=== PATIENT | female | born 1995 | race Caucasian/White ===

== ENCOUNTER 2020-01-11 03:05 | Emergency (ER) | payer MEDICAID, SELFPAY ==
[2020-01-11] VITALS (7 sets, daily range): BP systolic 97–129; BP diastolic 61–81; PULSE 62–105; RESP 15–17; TEMP 36.8; O2SAT 97–100; BMI 30.2
--- NOTE | 2020-01-11 03:13 | USR_ITS ---
PROCEDURE INFORMATION: Exam: US Abdomen, Limited; Right Upper Quadrant Exam date and time: 01/11/2020 3:46 AM Age: 24 years old Clinical indication: Abdominal pain; Acute; ; Patient HX: Ruq pain; Additional info: Abdominal pain ruq elton TECHNIQUE: Imaging protocol: US abdomen. Real time ultrasound with image documentation. Limited exam focused on the right upper quadrant. COMPARISON: No relevant prior studies available. FINDINGS: Liver: Unremarkable measuring 12.02 cm in length. No masses. Gallbladder: A 1.3 cm shadowing stone is present in the gallbladder with the mild wall thickening measuring 0.37 cm. Common bile duct: Normal. No stones. No dilation. Pancreas: Visualized pancreas is unremarkable. Right kidney: Unremarkable measuring 9.2 x 4 x 4.7 cm. No mass. No hydronephrosis. US/US abdomen limited [id number] IMPRESSION: A gallstone is present with gallbladder wall thickening.
--- NOTE | 2020-01-11 03:44 | ED_ITS ---
Documented by User: Oliva Alatorre 01/11/20 05:37 HPI - Abdominal Pain General: Chief Complaint: Abdominal Pain Stated Complaint: ABDOMINAL PAIN Time Seen by Provider: 01/11/20 03:08 Source: patient and EMS Mode of arrival: EMS Limitations: no limitations History of Present Illness: HPI narrative: An is a nice 24-year-old female who comes in complaining of epigastric pain. She describes the pain as a dull aching pain. Is been present for about 2 weeks and she states comes on at night. She has associated nausea with this. She does take a nonsteroidal at home that helps but the pain recurs after the medicine has worn off. She has a lot of belching with this as well. She complains of constipation and no diarrhea. She denies any lower abdominal pain. Patient states the pain is usually gone during the day but then each night recurs. She came in tonight because she was frustrated that the pain was not resolving. She denies any feve rs or chills, no chest pain or shortness of breath. She denies any aggravating or alleviating factors other than the nonsteroidals. Patient denies having anything similar in the past. There is no report of vaginal bleeding, vaginal discharge or urinary symptoms. Associated Symptoms: Reports nausea; Denies chills, coffee ground emesis, constipation, GI cramping, diarrhea, dysuria, fever(s), heartburn, hematochezia, hematuria, hematemesis, melena, syncope and vomiting Review of Systems Const: Denies: fever(s), chills, body aches, fatigue, malaise or diaphoresis Eyes: Denies: change in vision, blurry vision, photophobia, eye discomfort, eye discharge, eye redness or yellow eyes ENMT: Denies: throat pain, odynophagia, hoarseness, swelling of lips/tongue, ear or mastoid pain, ear discharge, change in hearing or nasal discharge Card: Denies: chest pain, palpitations, irregular heart rhythm, edema, lightheadedness, syncope, pre-syncope, dyspnea on exertion or orthopnea Resp: Denies: dyspnea, productive cough, non-productive cough, wheezing, hemoptysis or chest congestion GI: Reports: abdominal pain and nausea; Denies: vomiting, hematemesis, coffee ground emesis, heartburn, diarrhea, constipation, GI cramping, hematochezia or melena : Denies: flank pain, dysuria, urinary frequency, urinary urgency or hematuria Musc: Denies: neck pain, back pain, extremity pain, extremity swelling, joint pain, joint swelling, joint redness, joint warmth or joint stiffness Skin/Breast: Denies: rash, pruritus, erythema, skin pain or skin tenderness Neuro: Denies: headache(s), numbness in extremities, weakness in extremities, sensory changes, lack of coordination, difficulty walking, dizziness, vertigo, confusion, Slurred speech present or seizure-like activity [place]/Lymph: Denies: easy bruising, easy bleeding, petechiae, purpura or e nlarged lymph nodes All/Imm: Denies: urticaria, throat swelling, tongue swelling, facial swelling or acute wheezing PFSH ED PFSH: Medical History No pertinent past medical history Surgical History History of section, classical Physical Exam Const: COMMON NORMALS: no acute distress, patient oriented x3, no limitations and alert GENERAL APPEARANCE: cooperative HENMT: COMMON NORMALS: normocephalic, atraumatic, external ears normal, EAC's normal and Normal external nose present HEAD & SCALP: normal to inspection, normocephalic and atraumatic FACE & SINUS: normal facial exam and face symmetric NOSE: Normal external nose present and Normal nares present EXTERNAL EAR: Yes external ears normal EXTERNAL AUDITORY CANAL: EAC's normal MOUTH: Normal oral and palatal mucosa present, lip normal and tongue normal Eye: COMMON NORMALS: Equal, round and reactive pupils present and conjunctivae normal GENERAL EYE: appearance normal, both eyes and all related structures ALIGNMENT: Yes alignment normal PERIORBITAL: periorbital findings normal EYELID: eyelids normal CONJUNCTIVA: Yes conjunctivae normal SCLERA: sclerae normal PUPIL: Yes Equal, round and reactive pupils present Neck/C-Spine: COMMON NORMALS: full ROM, no lymphadenopathy, supple, no meningeal signs and no JVD GENERAL: Yes normal visual inspection and Yes trachea midline Chest: COMMONS NORMALS: normal inspection of the chest and normal palpation of entire chest wall Resp: COMMON NORMALS: normal respiratory effort, No retractions, No use of accessory muscles and clear to auscultation bilaterally EFFORT & INSPECTION: Yes able to speak in complete sentences and Yes symmetric chest movement AUSCULTATION: clear to auscultation bilaterally, no crackles, no rales, no rhonchi and no wheezes Cardio: COMMON NORMALS: no JVD, regular rate, regular rhythm, S1 normal heart sound present and S2 normal heart sound present RATE: regular rate RHYTHM: regular rhythm HEART SOUNDS: S1 normal heart sound present, S2 normal heart sound present, no click, no gallops, no murmurs and no rubs GI: COMMON NORMALS: Soft to palpation and No hepatosplenomegaly present PALPATION: Yes Soft to palpation, Yes Tenderness to palpation present (GI) (Mild to the epigastric area), No Guarding due to palpation present (GI), No Rigid due to palpation, Yes No hepatosplenomegaly present, No Hernia present, No Palpable mass present and No Pulsatile mass present : COMMON NORMALS: Yes no CVA tenderness BLADDER/KIDNEY EXAM: Yes no CVA tenderness EXTERNAL FEMALE EXAM: No Hernia present SPECULUM EXAM - VAGINA: Yes other (Cervical os closed. No obvious vaginal discharge or bleeding. Mild right adnexal tenderness to palpation. Pelvic exam unremarkable.) Back/Pelvis: COMMON NORMALS: no CVA tenderness, thoracic and lumbar spine normal to inspection, no thoracic nor lumbar tenderness and thoraco-lumbar ROM normal Extremity: COMMON NORMALS: normal to inspection, full ROM, capillary refill normal, no joint enlargement, no clubbing, cyanosis or edema and no calf tenderness Neuro: COMMON NORMALS: patient oriented x3, CN's II-XII intact bilaterally, moves all extremities, no focal motor deficits and no sensory deficits noted SENSORIUM/ORIENTATION: Yes alert MENINGEAL SIGNS: Yes no meningeal signs SPEECH: speech normal Psych: COMMON NORMALS: mental status grossly normal, Normal thought process present, cooperative, normal affect, speech normal and activity/motor behavior normal SPEECH: Yes normal speech THOUGHT PROCESS: Normal thought process present Skin: COMMON NORMALS: no rashes or lesions noted, turgor normal, no jaundice, no petechiae and no mottling GENERAL SKIN EXAM: no rashes or lesions noted and turgor normal Course Vital Signs: Vital signs: Vital Signs Temperature 98.2 F 01/11/20 03:06 Pulse Rate 90 01/11/20 06:00 Respiratory Rate 16 01/11/20 06:00 Blood Pressure 97/61 01/11/20 06:00 Pulse Oximetry 98 01/11/20 06:00 MDM - Abdominal Pain Lab Data: Attestation: I reviewed the patient's lab results. Labs: Lab Results 01/11/20 01/11/20 01/11/20 Range/Units 03:46 03:46 03:56 WBC 9.7 (4.0-10.0) 10^3/ uL RBC 4.56 (4.1-5.3) 10^6/u L Hgb 13.3 (11.5-15.3) g/dL Hct 39.7 (37.0-47.0) % MCV 87.1 (81-99) fL MCH 29.2 (28.0-34.0) pg MCHC 33.5 (30.0-36.0) g/dL RDW 13.0 (12.1-15.1) % Plt Count 208 (130-400) 10^3/c mm MPV 10.8 H (7.4-10.4) fL Neut % (Auto) 73.9 % Lymph % (Auto) 20.3 % [place] % (Auto) 4.7 % Eos % (Auto) 0.4 % Baso % (Auto) 0.5 % Neut # (Auto) 7.18 (1.8-7.7) 10^3/u L Lymph # (Auto) 2.0 (0.8-4.8) 10^3/u L [place] # (Auto) 0.5 (0.2-0.9) 10^3/u L Eos # (Auto) 0.0 (0.0-0.8) 10^3/u L Baso # (Auto) 0.1 (0.0-0.1) 10^3/u L Nucleated RBC % (a uto) 0 % Nucleated RBCs # 0.0 /100WBC Sodium (136-145) mmol/L Potassium (3.5-5.1) mmol/L Chloride (98-107) mmol/L Carbon Dioxide (22-29) mmol/L Anion Gap (5-19) BUN (6-20) mg/dL Creatinine (0.5-0.9) mg/dL GFR Calculation (90-130) mL/min Glucose (65-115) mg/dL Calculated Osmolal ity (285-295) mOsm/k g Calcium (8.5-10.5) mg/dL Magnesium (1.7-2.3) mg/dL Total Bilirubin (0.15-1.2) mg/dL AST (0-32) U/L ALT (0-33) U/L Alkaline Phosphata se (35-105) IU/L Total Protein (6.6-8.7) g/dL Albumin (3.5-5.2) g/dL Globulin (1.3-4.6) g/dL Lipase (13-60) U/L HCG, Qual Positive H (Negative) Ser , Fiona i-Qnt mIU/mL Urine Color Straw (Yellow) Urine Appearance Sl hazy (CLEAR) Urine pH 5 (5-7) Ur Specific Gravit y 1.005 (1.005-1.030) Urine Protein Neg (Negative) Urine Glucose (UA) Norm (Normal) Urine Ketones Negative (Negative) Urine Blood Neg (Negative) Urine Nitrate Positive H (Negative) Urine Bilirubin Neg (Negative) Urine Urobilinogen Norm (Negative) mg/dL Ur Leukocyte Naz ase Negative (Negative) Urine RBC 0-4 H (0-2) /hpf Urine WBC 0-4 H (0-5) /hpf Ur Squamous Epith Cells 25-40 H (0-5) /hpf Amorphous Sediment 2+ /hpf Urine Bacteria 2+ H (NONE) /hpf Urine Mucus 1+ /hpf Blood Type Rho(D) Type 01/11/20 01/11/20 01/11/20 Range/Units 03:56 03:56 07:10 WBC (4.0-10.0) 10^3/ uL RBC (4.1-5.3) 10^6/u L Hgb (11.5-15.3) g/dL Hct (37.0-47.0) % MCV (81-99) fL MCH (28.0-34.0) pg MCHC (30.0-36.0) g/dL RDW (12.1-15.1) % Plt Count (130-400) 10^3/c mm MPV (7.4-10.4) fL Neut % (Auto) % Lymph % (Auto) % [place] % (Auto) % Eos % (Auto) % Baso % (Auto) % Neut # (Auto) (1.8-7.7) 10^3/u L Lymph # (Auto) (0.8-4.8) 10^3/u L [place] # (Auto) (0.2-0.9) 10^3/u L Eos # (Auto) (0.0-0.8) 10^3/u L Baso # (Auto) (0.0-0.1) 10^3/u L Nucleated RBC % (a uto) % Nucleated RBCs # /100WBC Sodium 139 (136-145) mmol/L Potassium 3.7 (3.5-5.1) mmol/L Chloride 109 H (98-107) mmol/L Carbon Dioxide 20 L (22-29) mmol/L Anion Gap 13.7 (5-19) BUN 9 (6-20) mg/dL Creatinine 0.7 (0.5-0.9) mg/dL GFR Calculation 102.8 (90-130) mL/min Glucose 96 (65-115) mg/dL Calculated Osmolal ity 287 (285-295) mOsm/k g Calcium 9.2 (8.5-10.5) mg/dL Magnesium 2.0 (1.7-2.3) mg/dL Total Bilirubin 0.2 (0.15-1.2) mg/dL AST 12 (0-32) U/L ALT 9 (0-33) U/L Alkaline Phosphata se 84 (35-105) IU/L Total Protein 6.5 L (6.6-8.7) g/dL Albumin 4.3 (3.5-5.2) g/dL Globulin 2.2 (1.3-4.6) g/dL Lipase 19 (13-60) U/L HCG, Qual (Negative) Ser , Fiona i-Qnt 18.94 mIU/mL Urine Color (Yellow) Urine Appearance (CLEAR) Urine pH (5-7) Ur Specific Gravit y (1.005-1.030) Urine Protein (Negative) Urine Glucose (UA) (Normal) Urine Ketones (Negative) Urine Blood (Negative) Urine Nitrate (Negative) Urine Bilirubin (Negative) Urine Urobilinogen (Negative) mg/dL Ur Leukocyte Naz ase (Negative) Urine RBC (0-2) /hpf Urine WBC (0-5) /hpf Ur Squamous Epith Cells (0-5) /hpf Amorphous Sediment /hpf Urine Bacteria (NONE) /hpf Urine Mucus /hpf Blood Type O Positive Rho(D) Type Positive Imaging Data ^: US: Radiologist's impression: [address] [address] Ultrasound Report Signed Patient: Etta Mayorga #: [id number] : 1995Acct#:[id number] Age/Sex: 24 / FADM Date: 01/11/20 Loc: ERRoom/Bed: Attending Dr: Ordering Provider/Ordering MD: Oliva Alatorre DO Date of Service: 01/11/20 Procedure(s): US abdomen limited [id number] Accession Number(s): [id number] Report Number: [id number] PROCEDURE INFORMATION: Exam: US Abdomen, Limited; Right Upper Quadrant Exam date and time: 01/11/2020 3:46 AM Age: 24 years old Clinical indication: Abdominal pain; Acute; ; Patient HX: Ruq pain; Additional info: Abdominal pain ruq elton TECHNIQUE: Imaging protocol: US abdomen. Real time ultrasound with image documentation. Limited exam focused on the right upper quadrant. COMPARISON: No relevant prior studies available. FINDINGS: Liver: Unremarkable measuring 12.02 cm in length. No masses. Gallbladder: A 1.3 cm shadowing stone is present in the gallbladder with the mild wall thickening measuring 0.37 cm. Common bile duct: Normal. No stones. No dilation. Pancreas: Visualized pancreas is unremarkable. Right kidney: Unremarkable measuring 9.2 x 4 x 4.7 cm. No mass. No hydronephrosis. US/US abdomen limited [id number] IMPRESSION: A gallstone is present with gallbladder wall thickening. Dictated By:Shakeel Velasquez Signed By:Amado Velasquez Date/Time:01/11/20426 DD/ 5 Discharge Plan Discharge Patient Disposition: Home Clinical Impression: Abdominal pain, Ectopic Condition: Stable Prescriptions: [place] 5-325 mg tablet 1 tab PO Q6H PRN (Reason: pain) Qty: 14 RF: 0 ondansetron 4 mg tablet,disintegrating 4 mg PO Q6H PRN (Reason: nausea and vomiting) Qty: 14 RF: 0 clindamycin HCl 300 mg capsule 300 mg PO Q8H 7 Days Qty: 21 RF: 0 Discharge Orders: Discharge Order (Routine); Ordered 01/11/20 Ordered By: Renny Pfeiffer Referrals: Breezy Rocha MD [Physician] - 1-3 days Hadley Medina MD [Physician] - 1-3 days Discharge Diet: Advance as tolerated Discharge Activity: Resume usual activity Patient Instructions: Cholecystitis (ED), Abdominal Pain (ED) Coding Level of Care Code ED Hand Etcher Helper for Chg Fwd Exam Comprehensive Documented by User: Renny Pfeiffer MD 01/11/20 08:16 HPI - Abdominal Pain General: Chief Complaint: Abdominal Pain Stated Complaint: ABDOMINAL PAIN Time Seen by Provider: 01/11/20 03:08 PFSH ED PFSH: Medical History No pertinent past medical history Surgical History History of section, classical Course Vital Signs: Vital signs: Vital Signs Temperature 98.2 F 01/11/20 03:06 Pulse Rate 90 01/11/20 06:00 Respiratory Rate 16 01/11/20 06:00 Blood Pressure 97/61 01/11/20 06:00 Pulse Oximetry 98 01/11/20 06:00 MDM - Abdominal Pain MDM Narrative: Medical decision making narrative: Patient presents here with abdominal pain. Ultrasound did show gallstones with very minimal wall thickening. Spoke to Dr. Medina who wants to follow patient outpatient. Will place her on pain meds along with clindamycin. Her OB ultrasound is concerning for possible ectopic. I spoke to Dr. Rocha about this. Her vital signs here are stable and her pain is controlled. Her serum quantitative is only 18. He states he wants to follow her quantitative and repeat ultrasound outpatient. He did not want to admit her or start methotrexate at this time. Patient is to follow-up with both providers in 2 to 3 days. She is to return to the ER if worsening. Lab Data: Labs: Lab Results 01/11/20 01/11/20 01/11/20 Range/Units 03:46 03:46 03:56 WBC 9.7 (4.0-10.0) 10^3/ uL RBC 4.56 (4.1-5.3) 10^6/u L Hgb 13.3 (11.5-15.3) g/dL Hct 39.7 (37.0-47.0) % MCV 87.1 (81-99) fL MCH 29.2 (28.0-34.0) pg MCHC 33.5 (30.0-36.0) g/dL RDW 13.0 (12.1-15.1) % Plt Count 208 (130-400) 10^3/c mm MPV 10.8 H (7.4-10.4) fL Neut % (Auto) 73.9 % Lymph % (Auto) 20.3 % [place] % (Auto) 4.7 % Eos % (Auto) 0.4 % Baso % (Auto) 0.5 % Neut # (Auto) 7.18 (1.8-7.7) 10^3/u L Lymph # (Auto) 2.0 (0.8-4.8) 10^3/u L [place] # (Auto) 0.5 (0.2-0.9) 10^3/u L Eos # (Auto) 0.0 (0.0-0.8) 10^3/u L Baso # (Auto) 0.1 (0.0-0.1) 10^3/u L Nucleated RBC % (a uto) 0 % Nucleated RBCs # 0.0 /100WBC Sodium (136-145) mmol/L Potassium (3.5-5.1) mmol/L Chloride (98-107) mmol/L Carbon Dioxide (22-29) mmol/L Anion Gap (5-19) BUN (6-20) mg/dL Creatinine (0.5-0.9) mg/dL GFR Calculation (90-130) mL/min Glucose (65-115) mg/dL Calculated Osmolal ity (285-295) mOsm/k g Calcium (8.5-10.5) mg/dL Magnesium (1.7-2.3) mg/dL Total Bilirubin (0.15-1.2) mg/dL AST (0-32) U/L ALT (0-33) U/L Alkaline Phosphata se (35-105) IU/L Total Protein (6.6-8.7) g/dL Albumin (3.5-5.2) g/dL Globulin (1.3-4.6) g/dL Lipase (13-60) U/L HCG, Qual Positive H (Negative) Ser , Fiona i-Qnt mIU/mL Urine Color Straw (Yellow) Urine Appearance Sl hazy (CLEAR) Urine pH 5 (5-7) Ur Specific Gravit y 1.005 (1.005-1.030) Urine Protein Neg (Negative) Urine Glucose (UA) Norm (Normal) Urine Ketones Negative (Negative) Urine Blood Neg (Negative) Urine Nitrate Positive H (Negative) Urine Bilirubin Neg (Negative) Urine Urobilinogen Norm (Negative) mg/dL Ur Leukocyte Naz ase Negative (Negative) Urine RBC 0-4 H (0-2) /hpf Urine WBC 0-4 H (0-5) /hpf Ur Squamous Epith Cells 25-40 H (0-5) /hpf Amorphous Sediment 2+ /hpf Urine Bacteria 2+ H (NONE) /hpf Urine Mucus 1+ /hpf Blood Type Rho(D) Type 01/11/20 01/11/20 01/11/20 Range/Units 03:56 03:56 07:10 WBC (4.0-10.0) 10^3/ uL RBC (4.1-5.3) 10^6/u L Hgb (11.5-15.3) g/dL Hct (37.0-47.0) % MCV (81-99) fL MCH (28.0-34.0) pg MCHC (30.0-36.0) g/dL RDW (12.1-15.1) % Plt Count (130-400) 10^3/c mm MPV (7.4-10.4) fL Neut % (Auto) % Lymph % (Auto) % [place] % (Auto) % Eos % (Auto) % Baso % (Auto) % Neut # (Auto) (1.8-7.7) 10^3/u L Lymph # (Auto) (0.8-4.8) 10^3/u L [place] # (Auto) (0.2-0.9) 10^3/u L Eos # (Auto) (0.0-0.8) 10^3/u L Baso # (Auto) (0.0-0.1) 10^3/u L Nucleated RBC % (a uto) % Nucleated RBCs # /100WBC Sodium 139 (136-145) mmol/L Potassium 3.7 (3.5-5.1) mmol/L Chloride 109 H (98-107) mmol/L Carbon Dioxide 20 L (22-29) mmol/L Anion Gap 13.7 (5-19) BUN 9 (6-20) mg/dL Creatinine 0.7 (0.5-0.9) mg/dL GFR Calculation 102.8 (90-130) mL/min Glucose 96 (65-115) mg/dL Calculated Osmolal ity 287 (285-295) mOsm/k g Calcium 9.2 (8.5-10.5) mg/dL Magnesium 2.0 (1.7-2.3) mg/dL Total Bilirubin 0.2 (0.15-1.2) mg/dL AST 12 (0-32) U/L ALT 9 (0-33) U/L Alkaline Phosphata se 84 (35-105) IU/L Total Protein 6.5 L (6.6-8.7) g/dL Albumin 4.3 (3.5-5.2) g/dL Globulin 2.2 (1.3-4.6) g/dL Lipase 19 (13-60) U/L HCG, Qual (Negative) Ser , Fiona i-Qnt 18.94 mIU/mL Urine Color (Yellow) Urine Appearance (CLEAR) Urine pH (5-7) Ur Specific Gravit y (1.005-1.030) Urine Protein (Negative) Urine Glucose (UA) (Normal) Urine Ketones (Negative) Urine Blood (Negative) Urine Nitrate (Negative) Urine Bilirubin (Negative) Urine Urobilinogen (Negative) mg/dL Ur Leukocyte Naz ase (Negative) Urine RBC (0-2) /hpf Urine WBC (0-5) /hpf Ur Squamous Epith Cells (0-5) /hpf Amorphous Sediment /hpf Urine Bacteria (NONE) /hpf Urine Mucus /hpf Blood Type O Positive Rho(D) Type Positive Imaging Data ^: US OB: Radiologist's impression: [address] [place] [address] Ultrasound Report Signed Patient: An Mayorga Unit #: [id number] : 1995 Age/Sex: 24 / F ADM Date: 01/11/20 Loc: ER Room/Bed: Attending Dr: Ordering Provider/Ordering MD: Oliva Alatorre DO Date of Service: 01/11/20 Procedure(s): US OB <=14 wk fetus w transvag Accession Number(s): [id number] Report Number: [id number] PROCEDURE INFORMATION: Exam: US First Trimester, Transabdominal and US , Transvaginal Exam date and time: 01/11/2020 4:30 AM Age: 24 years old Clinical indication: Other: PT here for ruq pain and she has gallstones with thickened wall; Gestational age or lmp: Unsure dates; ; Prior surgery; Surgery date: 6+ months; Surgery type: 3 c sections; Patient HX: PT did not know she was pg until test done in er. TECHNIQUE: Imaging protocol: Real-time transabdominal obstetrical ultrasound of the maternal pelvis and a first trimester , less than 14 weeks 0 days, with image documentation. Transvaginal imaging was used for better evaluation of the fetus, adnexa, and/or cervix. COMPARISON: US abdomen limited [id number] 01/11/2020 3:57 AM FINDINGS: No intrauterine gestation is identified. MATERNAL: Uterus: Is unremarkable measuring 10.0 x 3.4 x 5 cm with a volume of 92 mL. Cervix: Unremarkable. Right adnexa: The right ovary is seen measuring 3.8 x 2.6 x 2.6 cm with a volume of 13.2 cc. Appearance of a mass is seen next to the right ovary with flow seen in the Doppler examination like a ring of fire . Left adnexa: The left ovary is not seen. Intraperitoneal space: Small amount of free fluid is seen in the cul-de-sac. US/US OB <=14 wk fetus w transvag IMPRESSION: No intrauterine gestation is seen. A mass is seen next to the right ovary with increased flow on Doppler examination like ring of fire. Small amount of free fluid is seen in the cul-de-sac. An ectopic is not excluded. Correlation with beta HCG levels and follow-up is suggested. Discharge Plan Discharge Patient Disposition: Home Clinical Impression: Abdominal pain, Ectopic Condition: Stable Prescriptions: [place] 5-325 mg tablet 1 tab PO Q6H PRN (Reason: pain) Qty: 14 RF: 0 ondansetron 4 mg tablet,disintegrating 4 mg PO Q6H PRN (Reason: nausea and vomiting) Qty: 14 RF: 0 clindamycin HCl 300 mg capsule 300 mg PO Q8H 7 Days Qty: 21 RF: 0 Discharge Orders: Discharge Order (Routine); Ordered 01/11/20 Ordered By: Renny Pfeiffer Referrals: Breezy Rocha MD [Physician] - 1-3 days Hadley Medina MD [Physician] - 1-3 days Discharge Diet: Advance as tolerated Discharge Activity: Resume usual activity Patient Instructions: Cholecystitis (ED), Abdominal Pain (ED) Coding Level of Care Code ED Hand Etcher Helper for Chg Fwd Exam Comprehensive
[2020-01-11] MEDS: ondansetron 2 mg/ML SDV 2 mL 4 MG IVP (03:45)
[2020-01-11] MEDS: morphine 4 mg/mL SDV 1 mL IVP (03:45)
[2020-01-11] MEDS: sodium chloride 0.9% 1,000 ML 100 ML IV (03:45)
[2020-01-11 04:08] LABS: Basophils # 0.1 10^3/uL (0.0-0.1); Basophils % 0.5 %; Eosinophils % 0.4 %; Hematocrit 39.7 % (37.0-47.0); Hemoglobin 13.3 g/dL (11.5-15.3); Lymphocytes % 20.3 %; Mean Corpuscular HGB Conc 33.5 g/dL (30.0-36.0); Mean Corpuscular Hemoglobin 29.2 pg (28.0-34.0); Mean Corpuscular Volume 87.1 fL (81-99); Mean Platelet Volume 10.8 fL (7.4-10.4); Monocytes # 0.5 10^3/uL (0.2-0.9); Monocytes % 4.7 %; Neutrophils # 7.18 10^3/uL (1.8-7.7); Neutrophils % 73.9 %; Nucleated Red Blood Cells % 0 %; Platelet Count 208 10^3/cmm (130-400); Red Blood Count 4.56 10^6/uL (4.1-5.3); White Blood Count 9.7 10^3/uL (4.0-10.0)
[2020-01-11 04:14] LABS: Add Urine Microscopic? YES; Bilirubin Urine Neg (Negative); Blood Urine Neg (Negative); Glucose Urine UA Norm (Normal); Ketones Urine Negative (Negative); Leukocyte Esterase Urine Negative (Negative); Nitrate Urine Positive (Negative); Protein Urine Neg (Negative); Specific Gravity, Urine 1.005 (1.005-1.030); Urine Appearance SL Hazy (CLEAR); Urine Color Straw (Yellow); Urobilinogen Urine Norm (Negative); pH Urine 5 (5-7)
[2020-01-11 04:16] LABS: HCG, Serum Qual Positive (Negative)
[2020-01-11 04:19] LABS: Add Urine Culture? No; Amorphous Sediment Urine 2+ /hpf; Bacteria Urine 2+ /hpf; Mucus Urine 1+ /hpf; RBC Urine 0-4 /hpf (0-2); Squamous Epithelial Cell Urine 25-40 /hpf (0-5); WBC Urine 0-4 /hpf (0-5)
--- NOTE | 2020-01-11 04:20 | USR_ITS ---
PROCEDURE INFORMATION: Exam: US First Trimester, Transabdominal and US , Transvaginal Exam date and time: 01/11/2020 4:30 AM Age: 24 years old Clinical indication: Other: PT here for ruq pain and she has gallstones with thickened wall; Gestational age or lmp: Unsure dates; ; Prior surgery; Surgery date: 6+ months; Surgery type: 3 c sections; Patient HX: PT did not know she was pg until test done in er. TECHNIQUE: Imaging protocol: Real-time transabdominal obstetrical ultrasound of the maternal pelvis and a first trimester , less than 14 weeks 0 days, with image documentation. Transvaginal imaging was used for better evaluation of the fetus, adnexa, and/or cervix. COMPARISON: US abdomen limited [id number] 01/11/2020 3:57 AM FINDINGS: No intrauterine gestation is identified. MATERNAL: Uterus: Is unremarkable measuring 10.0 x 3.4 x 5 cm with a volume of 92 mL. Cervix: Unremarkable. Right adnexa: The right ovary is seen measuring 3.8 x 2.6 x 2.6 cm with a volume of 13.2 cc. Appearance of a mass is seen next to the right ovary with flow seen in the Doppler examination like a ring of fire . Left adnexa: The left ovary is not seen. Intraperitoneal space: Small amount of free fluid is seen in the cul-de-sac. US/US OB <=14 wk fetus w transvag IMPRESSION: No intrauterine gestation is seen. A mass is seen next to the right ovary with increased flow on Doppler examination like ring of fire. Small amount of free fluid is seen in the cul-de-sac. An ectopic is not excluded. Correlation with beta HCG levels and follow-up is suggested.
[2020-01-11] MEDS: piperacillin-tazobactam 3.375 GM in sodium chloride 0.9% (plus) 50 ML IV (04:29)
[2020-01-11 04:32] LABS: Alanine Aminotransferase 9 U/L (0-33); Albumin Level 4.3 g/dL (3.5-5.2); Alkaline Phosphatase 84 IU/L (35-105); Anion Gap 13.7 (5-19); Aspartate Amino Transferase 12 U/L (0-32); Blood Urea Nitrogen 9 mg/dL (6-20); Calcium 9.2 mg/dL (8.5-10.5); Carbon Dioxide 20 mmol/L (22-29); Chloride 109 mmol/L (98-107); Globulin 2.2 g/dL (1.3-4.6); Glomerular Filtration Rate 102.8 mL/min (90-130); Glucose 96 mg/dL (65-115); Lipase 19 U/L (13-60); Osmolality Calculated 287 mOsm/kg (285-295); Potassium 3.7 mmol/L (3.5-5.1); Sodium 139 mmol/L (136-145); Total Bilirubin 0.2 mg/dL (0.15-1.2); Total Protein 6.5 g/dL (6.6-8.7)
[2020-01-11 04:34] LABS: HCG Quantitative 18.94 mIU/mL
--- NOTE | 2020-01-12 11:51 | DCPLANNER ---
fermentation manager had message to schedule a follow up appointment for patient with general surgery. fermentation manager luba Jones at [facility], gave patients information. Patients information will be printed and reviewed. Clinic will call patient with appointment information.
--- NOTE | 2020-01-12 12:34 | DCPLANNER ---
manager skilled had message to schedule a follow up appointment for patient with [facility]. manager skilled called [facility], spoke with Elías, gave clinic patients information. manager skilled was told that patients information would be printed and reviewed. Clinic will call patient with appointment information.
--- NOTE | 2020-01-15 14:27 | DCPLANNER ---
Patient had a follow up appointment scheduled for 01.13.20 with [facility] - patient did attend appointment.
--- NOTE | 2020-01-15 14:40 | DCPLANNER ---
Patient has a follow up appointment scheduled for Thursday, January 16, 2020 at 1:[address] Medina. Clinic will call patient with appointment information.
--- NOTE | 2020-02-04 13:17 | DCPLANNER ---
Patient had a follow up appointment scheduled for 01.16.20 with [facility] general surgery - patient did attend appointment.
== END 2020-01-11 08:17 | disposition home or self-care (01) ==
PROVIDERS: Emergency Medicine; Emergency Provider Emergency Medicine
DX: O00.90 Unspecified ectopic pregnancy without intrauterine pregnancy (principal); O99.611 Diseases of the digestive system complicating pregnancy, first trimester; K80.20 Calculus of gallbladder without cholecystitis without obstruction; Z3A.00 Weeks of gestation of pregnancy not specified
CPT/HCPCS: 12345; 36415; 76700; 76705; 76801; 76817; 80053; 81001; 83690; 83735; 84702; 84703; 85025; 86900; 87210; 87491; 87591; 96361; 96365; 96375; 99283; 99284; J2270; J2405; J2543; J7030

== ENCOUNTER → 2020-01-13 16:43 | Outpatient (BNVA) | payer MEDICAID, SELFPAY | PROVIDERS: Visit Provider Obstetrics & Gynecology | DX: O36.80X0 Pregnancy with inconclusive fetal viability, not applicable or unspecified (principal) | CPT/HCPCS: 84702 ==

== ENCOUNTER → 2020-01-15 13:05 | Outpatient (BNVA) | payer MEDICAID, SELFPAY | PROVIDERS: Visit Provider Obstetrics & Gynecology | DX: O00.90 Unspecified ectopic pregnancy without intrauterine pregnancy (principal) | CPT/HCPCS: 84702 ==

== ENCOUNTER → 2020-01-21 13:31 | Outpatient (BNVA) | payer MEDICAID, SELFPAY | PROVIDERS: Visit Provider Obstetrics & Gynecology | DX: O20.0 Threatened abortion (principal) | CPT/HCPCS: 84702 ==

== ENCOUNTER 2020-01-22 01:24 | Emergency (ER) | payer MEDICAID, SELFPAY ==
[2020-01-22] VITALS (9 sets, daily range): BP systolic 91–120; BP diastolic 51–82; PULSE 74–90; RESP 16–18; TEMP 36.8; O2SAT 97–99; BMI 30.2
--- NOTE | 2020-01-22 01:41 | US_ITS ---
WS: [id number] RIGHT UPPER QUADRANT ULTRASOUND HISTORY: Pain COMPARISON: 01/11/2020 Liver: 12.2 cm in length. Normal size liver. No bile duct dilatation or mass. Gallbladder: Gallbladder is contracted and there is a large stone present in the lumen measuring up t o 1.7 cm. Gallbladder wall is top normal size at 2.7 mm. CBD: 0.3 cm Pancreas: Normal size and echogenicity. Right kidney: 9.3 cm in length. Normal size and echogenicity. No hydronephrosis or mass. Aorta and IVC: Unremarkable abdominal aorta and IVC. No ascites. US/US gall bladder [id number] IMPRESSION: 1. Cholelithiasis in a mildly contracted gallbladder. No pericholecystic fluid . 2. Normal common bile duct.
--- NOTE | 2020-01-22 01:41 | US_ITS ---
WS: [id number] TRANSVAGINAL PELVIC ULTRASOUND HISTORY: Pain COMPARISON: None available. Uterus: Uterus is midline and normal size. No fibroid or mass. Endometrium: 0.5 cm. Normal size with very minimal amount of fluid along the endometrial canal. No fe paul pole or cardiac activity or gestational sac. Right ovary: 2.3 cm x 2.5 cm x 2.5 cm. Normal size and vascularity. Left ovary: 2.1 cm x 1.9 cm x 2.3 cm. Normal size and vascularity. No free fluid. US/US transvaginal [id number] IMPRESSION: Negative transvaginal pelvic ultrasound. No intrauterine gestation is identifie d. If there is a positive beta hCG ectopic cannot be excluded.
--- NOTE | 2020-01-22 01:42 | W.ED.ABDPA2 ---
HPI - Abdominal Pain General: Chief Complaint: Abdominal Pain Stated Complaint: ABD PAIN Time Seen by Provider: 01/22/20 01:26 Source: patient and EMS Mode of arrival: EMS Limitations: no limitations History of Present Illness: HPI narrative: An is a very nice 24-year-old female who comes in complaining of right upper quadrant abdominal pain. Patient has known gallbladder disease but is being cleared first by OB as she is having complications. Patient states that she saw her AGENCY SERVICE REPRESENTATIVE on 1112 and was told that she was likely having a miscarriage. Patient had vaginal bleeding for about 5 days but this is stopped. She denies any lower abdominal pain. Denies any vaginal discharge or bleeding. She has no burning or pain when she urinates or urinary frequency/urgency. Patient states her pain tonight is from her gallbladder as she has eaten something that has flared up her pain but otherwise she denies any chest pain or shortness of breath. She denies any other complaints. Associated Symptoms: Reports nausea; Denies chills, coffee ground emesis, constipation, GI cramping, diarrhea, dysuria, fever(s), heartburn, hematochezia, hematuria, hematemesis, melena, syncope and vomiting Review of Systems Const: Denies: fever(s), chills, body aches, fatigue, malaise or diaphoresis Eyes: Denies: change in vision, blurry vision, photophobia, eye discomfort, eye discharge, eye redness or yellow eyes ENMT: Denies: throat pain, odynophagia, hoarseness, swelling of lips/tongue, ear or mastoid pain, ear discharge, change in hearing or nasal discharge Card: Denies: chest pain, palpitations, irregular heart rhythm, edema, lightheadedness, syncope, pre-syncope, dyspnea on exertion or orthopnea Resp: Denies: dyspnea, productive cough, non-productive cough, wheezing, hemoptysis or chest congestion GI: Reports: abdominal pain and nausea; Denies: vomiting, hematemesis, coffee ground emesis, heartburn, diarrhea, constipation, GI cramping, hematochezia or melena : Denies: flank pain, dysuria, urinary frequency, urinary urgency or hematuria Musc: Denies: neck pain, back pain, extremity pain, extremity swelling, joint pain, joint swelling, joint redness, joint warmth or joint stiffness Skin/Breast: Denies: rash, pruritus, erythema, skin pain or skin tenderness Neuro: Denies: headache(s), numbness in extremities, weakness in extremities, sensory changes, lack of coordination, difficulty walking, dizziness, vertigo, confusion, Slurred speech present or seizure-like activity [place]inton/Lymph: Denies: easy bruising, easy bleeding, petechiae, purpura or enlarged lymph nodes All/Imm: Denies: urticaria, throat swelling, tongue swelling, facial swelling or acute wheezing PFSH ED PFSH: Medical History (Updated 01/22/20 @ 05:29 by Oliva Alatorre) No pertinent past medical history Surgical History History of section, classical Family History Mother Diabetes Hypertension Stroke Family/Other Stroke maternal Heart disease maternal uncle Breast cancer maternal aunt in her 30's Denies family history of Colon cancer Ovarian cancer Clotting disorder Hyperlipidemia Anesthesia complication Bleeding disorder Uterine cancer Thyroid condition Social History Smoking and tobacco status: current every day smoker cigarettes Packs smoked per day: 1 Alcohol intake: never Marital status: Single Course Vital Signs: Vital signs: Vital Signs Temperature 98.3 F 01/22/20 01:37 Pulse Rate 90 01/22/20 01:37 Respiratory Rate 18 01/22/20 05:09 Blood Pressure 99/65 01/22/20 01:37 Pulse Oximetry 98 01/22/20 01:37 MDM - Abdominal Pain MDM Narrative: Medical decision making narrative: 05Yue Nolan is a very nice 24-year-old female who comes in complaining of recurrent right upper quadrant abdominal pain. Patient is being followed by Dr. Rocha who believes the patient is likely had a miscarriage. Her hormone is now within the non range and lower than it was earlier in the day. Patient had 5 days of vaginal bleeding and discharge that subsided 3 days ago. She refuses a pelvic exam today. Is likely the patient had a miscarriage as her pelvic ultrasound is completely normal tonight without any sign of ectopic, intrauterine or any acute abnormality. Patient described almost all of her pain is right upper quadrant in location. Her ultrasound tonight shows gallstones but no signs of cholecystitis. Patient does not have any nausea or vomiting or fever. Her labs are unremarkable. Patient has a planned cholecystectomy and she would like to continue with that plan. She declines any further evaluation and care here. Her pain is gone and she would like to be discharged. She will follow-up with Dr. Medina as scheduled as well as Dr. Rocha. She agrees to return here if her symptoms change or worsen. Differential Diagnosis: Differential diagnosis abdominal pain: Likely abdominal pain, acute appendicitis, constipation, gastroenteritis, pancreatitis and small bowel obstruction Medical Records: Attestation: I reviewed the patient's medical records. Lab Data: Attestation: I reviewed the patient's lab results. Labs: Lab Results 01/22/20 01/22/20 01/22/20 Range/Units 02:24 02:24 02:24 WBC 11.3 H (4.0-10.0) 10^3/ uL RBC 4.72 (4.1-5.3) 10^6/u L Hgb 13.6 (11.5-15.3) g/dL Hct 42.1 (37.0-47.0) % MCV 89.2 (81-99) fL MCH 28.8 (28.0-34.0) pg MCHC 32.3 (30.0-36.0) g/dL RDW 12.6 (12.1-15.1) % Plt Count 244 (130-400) 10^3/c mm MPV 10.9 H (7.4-10.4) fL Neut % (Auto) 79.6 % Lymph % (Auto) 14.5 % Centre % (Auto) 4.8 % Eos % (Auto) 0.5 % Baso % (Auto) 0.4 % Neut # (Auto) 8.97 H (1.8-7.7) 10^3/u L Lymph # (Auto) 1.6 (0.8-4.8) 10^3/u L Centre # (Auto) 0.5 (0.2-0.9) 10^3/u L Eos # (Auto) 0.1 (0.0-0.8) 10^3/u L Baso # (Auto) 0.1 (0.0-0.1) 10^3/u L Nucleated RBC % (a uto) 0 % Nucleated RBCs # 0.0 /100WBC Sodium 138 (136-145) mmol/L Potassium 3.8 (3.5-5.1) mmol/L Chloride 104 (98-107) mmol/L Carbon Dioxide 23 (22-29) mmol/L Anion Gap 14.8 (5-19) BUN 16 (6-20) mg/dL Creatinine 0.8 (0.5-0.9) mg/dL GFR Calculation 88.1 L (90-130) mL/min Glucose 101 (65-115) mg/dL Calculated Osmolal ity 287 (285-295) mOsm/k g Calcium 9.4 (8.5-10.5) mg/dL Magnesium 2.2 (1.7-2.3) mg/dL Total Bilirubin 0.2 (0.15-1.2) mg/dL AST 18 (0-32) U/L ALT 9 (0-33) U/L Alkaline Phosphata se 96 (35-105) IU/L Total Protein 7.2 (6.6-8.7) g/dL Albumin 4.6 (3.5-5.2) g/dL Globulin 2.6 (1.3-4.6) g/dL Lipase 23 (13-60) U/L Ser , Fiona i-Qnt 0.83 mIU/mL Urine Color (Yellow) Urine Appearance (CLEAR) Urine pH (5-7) Ur Specific Gravit y (1.005-1.030) Urine Protein (Negative) Urine Glucose (UA) (Normal) Urine Ketones (Negative) Urine Blood (Negative) Urine Nitrate (Negative) Urine Bilirubin (Negative) Urine Urobilinogen (Negative) mg/dL Ur Leukocyte Naz ase (Negative) Urine RBC (0-2) /hpf Urine WBC (0-5) /hpf Ur Squamous Epith Cells (0-5) /hpf Amorphous Sediment Urine Bacteria (NONE) /hpf Urine Mucus /hpf Blood Type O Positive Rho(D) Type Positive 01/22/20 Range/Units 03:45 WBC (4.0-10.0) 10^3/ uL RBC (4.1-5.3) 10^6/u L Hgb (11.5-15.3) g/dL Hct (37.0-47.0) % MCV (81-99) fL MCH (28.0-34.0) pg MCHC (30.0-36.0) g/dL RDW (12.1-15.1) % Plt Count (130-400) 10^3/c mm MPV (7.4-10.4) fL Neut % (Auto) % Lymph % (Auto) % Centre % (Auto) % Eos % (Auto) % Baso % (Auto) % Neut # (Auto) (1.8-7.7) 10^3/u L Lymph # (Auto) (0.8-4.8) 10^3/u L Centre # (Auto) (0.2-0.9) 10^3/u L Eos # (Auto) (0.0-0.8) 10^3/u L Baso # (Auto) (0.0-0.1) 10^3/u L Nucleated RBC % (a uto) % Nucleated RBCs # /100WBC Sodium (136-145) mmol/L Potassium (3.5-5.1) mmol/L Chloride (98-107) mmol/L Carbon Dioxide (22-29) mmol/L Anion Gap (5-19) BUN (6-20) mg/dL Creatinine (0.5-0.9) mg/dL GFR Calculation (90-130) mL/min Glucose (65-115) mg/dL Calculated Osmolal ity (285-295) mOsm/k g Calcium (8.5-10.5) mg/dL Magnesium (1.7-2.3) mg/dL Total Bilirubin (0.15-1.2) mg/dL AST (0-32) U/L ALT (0-33) U/L Alkaline Phosphata se (35-105) IU/L Total Protein (6.6-8.7) g/dL Albumin (3.5-5.2) g/dL Globulin (1.3-4.6) g/dL Lipase (13-60) U/L Ser , Fiona i-Qnt mIU/mL Urine Color Yellow (Yellow) Urine Appearance Cloudy (CLEAR) Urine pH 7.0 (5-7) Ur Specific Gravit y 1.010 (1.005-1.030) Urine Protein Neg (Negative) Urine Glucose (UA) Norm (Normal) Urine Ketones Negative (Negative) Urine Blood 3+ H (Negative) Urine Nitrate Positive H (Negative) Urine Bilirubin Neg (Negative) Urine Urobilinogen Norm (Negative) mg/dL Ur Leukocyte Naz ase Trace H (Negative) Urine RBC 0-4 H (0-2) /hpf Urine WBC 5-10 H (0-5) /hpf Ur Squamous Epith Cells 10-15 H (0-5) /hpf Amorphous Sediment Not Reportable Urine Bacteria 2+ H (NONE) /hpf Urine Mucus 1+ /hpf Blood Type Rho(D) Type Imaging Data ^: US: My impression: Ultrasound gallbladder, tech interpretation -gallstones present. No wall thickening. Normal common bile duct. No acute findings. US Pelvis: My impression: Tech interpretation -empty uterus. No evidence of ectopic. No free fluid. Bilateral ovaries normal with no torsion or cyst. No acute findings. Discharge Plan Discharge Patient Disposition: Home Clinical Impression: Biliary colic, Miscarriage Condition: Stable Prescriptions: No Action pantoprazole [Protonix] 40 mg tablet,delayed release (DR/EC) 40 mg PO QAM 30 Days Qty: 30 RF: 2 [place] 5-325 mg tablet 1 tab PO Q6H PRN (Reason: pain) Qty: 14 RF: 0 ondansetron 4 mg tablet,disintegrating 4 mg PO Q6H PRN (Reason: nausea and vomiting) Qty: 14 RF: 0 Discharge Orders: Discharge Order (Routine); Ordered 01/22/20 Ordered By: Oliva Alatorre Referrals: Shadia Raymundo NP [Primary Care Provider] - 1-3 days Hadley Medina MD [Physician] - 1-3 days Discharge Diet: Advance as tolerated Discharge Activity: Increase activity as tolerated Patient Instructions: Spontaneous Miscarriage (ED), Abdominal Pain (ED) Activity Restrictions/Additional Instructions: Please return to the ER immediately for any of the signs or symptoms listed on your discharge instruction sheets, worsening/changing of your symptoms, you are not getting better as quickly as expected, or for ANY other cause or concerns. Be certain to follow-up with Dr. Medina and Dr. Rocha as scheduled. Return to the ER for fever, vomiting, increased pain, or for any other cause for concern. You are leaving without complete evaluation of your miscarriage so if you change your mind or your symptoms change or worsen in any way please return here to the ER for recheck. Coding Level of Care Code ED Fiber Technologist for Adair Peters
[2020-01-22 02:33] LABS: Basophils # 0.1 10^3/uL (0.0-0.1); Basophils % 0.4 %; Eosinophils # 0.1 10^3/uL (0.0-0.8); Eosinophils % 0.5 %; Hematocrit 42.1 % (37.0-47.0); Hemoglobin 13.6 g/dL (11.5-15.3); Lymphocytes # 1.6 10^3/uL (0.8-4.8); Lymphocytes % 14.5 %; Mean Corpuscular HGB Conc 32.3 g/dL (30.0-36.0); Mean Corpuscular Hemoglobin 28.8 pg (28.0-34.0); Mean Corpuscular Volume 89.2 fL (81-99); Mean Platelet Volume 10.9 fL (7.4-10.4); Monocytes # 0.5 10^3/uL (0.2-0.9); Monocytes % 4.8 %; Neutrophils # 8.97 10^3/uL (1.8-7.7); Neutrophils % 79.6 %; Nucleated Red Blood Cells % 0 %; Platelet Count 244 10^3/cmm (130-400); Red Blood Count 4.72 10^6/uL (4.1-5.3); Red Cell Distribution Width 12.6 % (12.1-15.1); White Blood Count 11.3 10^3/uL (4.0-10.0)
[2020-01-22 02:52] LABS: HCG Quantitative 0.83 mIU/mL
[2020-01-22 03:03] LABS: Alanine Aminotransferase 9 U/L (0-33); Albumin Level 4.6 g/dL (3.5-5.2); Alkaline Phosphatase 96 IU/L (35-105); Anion Gap 14.8 (5-19); Aspartate Amino Transferase 18 U/L (0-32); Blood Urea Nitrogen 16 mg/dL (6-20); Calcium 9.4 mg/dL (8.5-10.5); Carbon Dioxide 23 mmol/L (22-29); Chloride 104 mmol/L (98-107); Globulin 2.6 g/dL (1.3-4.6); Glomerular Filtration Rate 88.1 mL/min (90-130); Glucose 101 mg/dL (65-115); Lipase 23 U/L (13-60); Magnesium 2.2 mg/dL (1.7-2.3); Osmolality Calculated 287 mOsm/kg (285-295); Potassium 3.8 mmol/L (3.5-5.1); Sodium 138 mmol/L (136-145); Total Bilirubin 0.2 mg/dL (0.15-1.2); Total Protein 7.2 g/dL (6.6-8.7)
[2020-01-22] MEDS: sodium chloride 0.9% 1,000 ML 100 ML IV (03:04)
[2020-01-22 04:53] LABS: Glucose Urine UA Norm (Normal); Protein Urine Neg (Negative); Urine Appearance Cloudy (CLEAR); Urine Color Yellow (Yellow)
[2020-01-22 04:54] LABS: Add Urine Culture? Yes; Bacteria Urine 2+ /hpf; Bilirubin Urine Neg (Negative); Blood Urine 3+ (Negative); Ketones Urine Negative (Negative); Leukocyte Esterase Urine Trace (Negative); Mucus Urine 1+ /hpf; Nitrate Urine Positive (Negative); RBC Urine 0-4 /hpf (0-2); Urobilinogen Urine Norm (Negative)
[2020-01-22] MEDS: cefTRIAXone 1,000 MG in sodium chloride 0.9% (plus) 50 ML 100 MG IV (05:08)
[2020-01-22] MEDS: morphine 4 mg/mL SDV 1 mL IVP (05:09)
== END 2020-01-22 06:07 | disposition home or self-care (01) ==
PROVIDERS: Emergency Provider Emergency Medicine; PCP Nurse Practitioner Family
DX: O03.9 Complete or unspecified spontaneous abortion without complication (principal); O26.899 Other specified pregnancy related conditions, unspecified trimester; Z3A.00 Weeks of gestation of pregnancy not specified; K80.50 Calculus of bile duct without cholangitis or cholecystitis without obstruction; O99.330 Smoking (tobacco) complicating pregnancy, unspecified trimester; F17.210 Nicotine dependence, cigarettes, uncomplicated
CPT/HCPCS: 12345; 76705; 76830; 76856; 80053; 81001; 83690; 83735; 84702; 85025; 86900; 87077; 87086; 87186; 87635; 96361; 96365; 96375; 99283; J0696; J2270; J7030

== ENCOUNTER → 2020-01-26 13:26 | Outpatient (BNVA) | payer MEDICAID, SELFPAY | PROVIDERS: PCP Nurse Practitioner Family; Visit Provider Obstetrics & Gynecology | DX: O03.9 Complete or unspecified spontaneous abortion without complication (principal) | CPT/HCPCS: 84702 ==

== ENCOUNTER 2020-01-28 11:35 | Day surgery (SDC) | payer MEDICAID, SELFPAY ==
[2020-01-27 10:14] VITALS: BMI 29.8
[2020-01-28] VITALS (10 sets, daily range): BP systolic 110–149; BP diastolic 70–107; PULSE 71–120; RESP 13–23; TEMP 36.4–37.1; O2SAT 96–100
--- NOTE | 2020-01-28 11:41 | W.PM.OPSUD ---
Surgery/Procedure H&P Update DATE OF PROCEDURE: January 28, 2020 DATE H&P PERFORMED: 01/16/20 H&P UPDATE INFORMATION: I have reviewed H&P completed within last 30 days, I have examined patient prior to procedure and No changes to prior documentation PLANNED PROCEDURE: Operation Date: 01/28/20 12:45 Proposed Procedures p Laparoscopic poss open Cholecystectomy 65200 k80.20(Not Applicable) - Hadley Medina MD
[2020-01-28 11:54] LABS: OR HCG Qualitative Urine Negative (Negative)
[2020-01-28] MEDS: sodium chloride 0.9% 1,000 ML 30 ML IV (12:07)
--- NOTE | 2020-01-28 12:07 | ANES.PREANE2 ---
Pre-Anesthetic Assessment Pre-Anesthetic Assessment: Height/Weight: Height 1.45 m Weight 62.596 kg Temp Pulse Resp BP Pulse Ox 97.6 F 71 18 116/70 99 01/28/20 11:55 01/28/20 11:55 01/28/20 11:55 01/28/20 11:55 01/28/20 11:55 Preop Diagnosis: cholelithiasis Proposed Procedure: Operation Date: 01/28/20 12:45 Proposed Procedures p Laparoscopic poss open Cholecystectomy 41191 k80.20(Not Applicable) - Hadley Medina MD Familial anesthetic complications: none Was Beta Mera taken within 24 hours: N/A Last intake: Intake Last Liquid Date 01/28/20 Last Liquid Time 08:00 Last Solid Date 01/27/20 Last Solid Time 13:00 Social: Social History: Tobacco and No alcohol Exam: Pre-Anes Outpt Exam: alert, oriented x 3, clear to auscultation bilaterally and regular rate & rhythm Airway: Cervical ROM: WNL MP: 4 Dentition: Full Additional comments: narrow arched palate with high-set tongue Anesthetic Plan: ASA status: 1 Anesthesia: General Risk of > 500 ml blood loss (7ml/kg in children): No PFSH Anesthesia PFSH: Medical History (Updated 01/28/20 @ 09:36 by Hadley Medina MD) No pertinent past medical history Surgical History (Updated 01/28/20 @ 09:36 by Hadley Medina MD) History of section, classical Status post laparoscopic cholecystectomy (01/28/20) Family History Mother Diabetes Hypertension Stroke Family/Other Stroke maternal Heart disease maternal uncle Breast cancer maternal aunt in her 30's Denies family history of Colon cancer Ovarian cancer Clotting disorder Hyperlipidemia Anesthesia complication Bleeding disorder Uterine cancer Thyroid condition Social History Smoking and tobacco status: current every day smoker cigarettes Packs smoked per day: 1 Alcohol intake: never Marital status: Single Female Reproductive History: Date of last menstrual period: 01/16/20 Data Anesthesia Other Labs: Laboratory Results - last 48 hr 01/28/20 11:51 Urine HCG, Qual Negative Cardiac Studies: No Data to Display
--- NOTE | 2020-01-28 13:48 | PM.OP ---
Operative Report Date of procedure: January 28, 2020 Pre-op Diagnosis: cholelithiasis Post-op Diagnosis: Cholelithiasis Chronic cholecystitis, the gallbladder is contracted with significant inflammation in the Calot's triangle which made dissection difficult Procedure Done: Laparoscopic cholecystectomy Specimens removed/disposition: Gallbladder Surgeon: Hadley Medina Anesthesia: General Condition: stable Disposition: PACU Procedure: The patient was taken to the operating room and was intubated under general anesthesia. After the antibiotic had been administered, the abdomen was prepped and draped in a sterile manner. Using a #15 blade, a 1 centimeter infraumbilical curvilinear incision was made and using an open Peace technique the peritoneal cavity was entered. A 10 millimeter port was placed and 15 millimeters of pneumoperitoneum was created. A 10 millimeter, 30 degrees scope was then introduced. Three 5 millimeter ports were placed in the epigastric, midclavicular and the anterior axillary line two fingerbreadths below the costal margin on the right side under the direct visualization. Ratcheted forceps were introduced into the lateral most port and was used to retract the fundus of the gallbladder cephalad and using forceps the infundibulum of the gallbladder was retracted laterally. The gallbladder wall was thickened, gallbladder was contracted and full of gallstones. Using L-hook cautery the peritoneum overlying the Calot's triangle was opened medially and laterally until the cystic duct and the cystic artery were skeletonized. Dissection was carried along the body of the gallbladder and after ensuring critical view of safety, 4 clips applied on the cystic duct and 3 clips applied on the cystic artery and cut leaving, 3 clips on the remaining portion of the duct and 2 clips on the remaining portion of the artery. There was significant inflammation around the Calot's triangle which made dissection difficult. The rest of the gallbladder was dissected off the liver using L-hook cautery. There was no bleeding or bile leaking noted from the gallbladder fossa and the clips appeared to be in place. An EndoCatch bag was introduced to remove the gallbladder. All the ports were removed under direct visualization and there was no bleeding noted from the port sites. The fascia of the umbilicus was closed using [id number] 0 Vicryl sutures and the subcutaneous tissue was approximated using 3-0 Vicryl sutures. The skin at all four ports were closed using 4-0 Monocryl and Dermabond. A total of 10 millimeters of 0.5% Marcaine was infiltrated around the port sites. The patient was stable throughout the procedure.
[2020-01-28] MEDS: ondansetron 2 mg/ML SDV 2 mL 4 MG IVP (14:10)
[2020-01-28] MEDS: fentaNYL 50 mcg/mL INJ 2mL IVP (14:15)
[2020-01-28] MEDS: HYDROcodone-acetaminophen 5-325 mg Tablet 1 TAB PO (14:59)
== END 2020-01-28 15:51 | disposition home or self-care (01) ==
LOC: OR 11:36
PROVIDERS: Anesthesiology; PCP Nurse Practitioner Family; Visit Provider Surgery
PROC: 0FT44ZZ Resection of Gallbladder, Percutaneous Endoscopic Approach (ICD-10-PCS; CPT 47562; principal; 2020-01-28 12:45)
DX: K80.10 Calculus of gallbladder with chronic cholecystitis without obstruction (principal); F17.210 Nicotine dependence, cigarettes, uncomplicated
CPT/HCPCS: 47562; 12345; 81025; 84703; 88304; J0690; J1100; J2405; J2704; J3010; J3490; J7030

== ENCOUNTER 2020-02-23 15:22 | Emergency (ER) | payer MEDICAID, SELFPAY ==
[2020-02-23 15:47] VITALS: BP 137/85; PULSE 78; RESP 14; TEMP 36.9; O2SAT 98; BMI 29.0
[2020-02-23 20:23] VITALS: BP 121/89; PULSE 75; RESP 16; O2SAT 100
--- NOTE | 2020-02-23 20:35 | ED_ITS ---
HPI - Headache General: Chief Complaint: Headache Stated Complaint: severe headache Time Seen by Provider: 02/23/20 20:22 Source: patient Mode of arrival: ambulatory Limitations: no limitations History of Present Illness: HPI Narrative: 24-year-old female patient presents to the emergency department with several complaints. She reports onset of migraine headache that started 3 days ago. She is reports diagnosed with migraines approximately 5 years ago. She states took Tylenol without improvement, has not taken APAP today. States started her menstrual cycle on 02/21/2020 which seems to trigger her migraines. Previous missed AB, under the care Dr. Rocha, beta-hCG 13 on 01/16/2020. This is the first menstrual cycle she has experienced since miscarriage. She reports this menstrual cycle is heavier than normal, states has lightened up today. She has concern with heavier menstrual cycle. She is also questioning her umbilical incision site from recent cholecystectomy. Denies bleeding or pain at the site. States can feel a stitch, reports clear drainage but occurs infrequently. States has an appointment with Dr. Adam rushing. She denies fever chills. MD elicited complaint: migraine Onset (ago): day(s) (4) Onset description: gradually and on awakening Location: left and parietal Severity: moderate Pain scale (0-10): 5 Quality & Timing: aching, throbbing and steady Exacerbating factors: light and noise Relieving factors: rest and dark room Context: other (with menstrual cycle) Associated symptoms: Reports photophobia and sound sensitivity; Deny chest pain, confusion, diaphoresis, fever(s), lightheadedness, malaise, nausea, rash or vomiting Treatments prior to arrival: acetaminophen Review of Systems General: Reports: 10 or more systems reviewed and unremarkable except in HPI and below Const: Denies: fever(s), chills, body aches, change in appetite, fatigue, malaise or diaphoresis Eyes: Reports: photophobia; Denies: change in vision, blurry vision, eye discomfort, eye redness or dry eyes ENMT: Denies: throat pain, uvular edema, dental pain, halitosis, disequilibrium, nasal discharge, nasal congestion, nasal obstruction or post nasal drip Card: Denies: chest pain, palpitations, irregular heart rhythm, swelling of fe et/ankles, lightheadedness, dyspnea on exertion or orthopnea Resp: Denies: dyspnea, productive cough, non-productive cough, wheezing or chest congestion GI: Denies: abdominal pain, nausea, vomiting, dysphagia, heartburn, diarrhea, constipation or pain on defecation : Denies: difficulty voiding or dysuria Musc: Denies: neck pain, back pain, joint pain, muscle cramps or muscle weakness Skin/Breast: Denies: rash or pruritus Neuro: Reports: headache(s); Denies: weakness in extremities, difficulty walking, dizziness, vertigo, confusion, behavioral changes, Slurred speech present or difficulty communicating thoughts Psych: Denies: anxiety or depression [place]/Lymph: Denies: easy bruising PFSH ED PFSH: Medical History No pertinent past medical history Surgical History History of section, classical Status post laparoscopic cholecystectomy (01/28/20) Family History Mother Diabetes Hypertension Stroke Family/Other Stroke maternal Heart disease maternal uncle Breast cancer maternal aunt in her 30's Denies family history of Colon cancer Ovarian cancer Clotting disorder Hyperlipidemia Anesthesia complication Bleeding disorder Uterine cancer Thyroid condition Social History Smoking and tobacco status: current every day smoker cigarettes Packs smoked per day: 1 Alcohol intake: never Marital status: Single Female Reproductive History: Date of last menstrual period: 01/16/20 Physical Exam Const: COMMON NORMALS: no acute distress, average body habitus, patient oriented x3, healthy appearing, alert and well nourished EXAM LIMITATIONS: no altered mental status, no behavioral limitations and no physical limitations GENERAL APPEARANCE: cooperative, comfortable, well kempt, well developed and well hydrated; not anxious and not ill appearing NUTRITIONAL APPEARANCE: overweight ORIENTATION/CONSCIOUSNESS: Yes awake, Yes oriented to person, Yes oriented to place and Yes oriented to time HENMT: COMMON NORMALS: normocephalic, atraumatic, EAC's normal, TM's normal bilaterally, Normal external nose present and moist oral mucous membranes HEAD & SCALP: normal to inspection, normocephalic and atraumatic; no hematoma FACE & SINUS: normal facial exam, sinuses nontender and face symmetric NOSE: Normal external nose present and Normal nares present EXTERNAL AUDITORY CANAL: EAC's normal TYMPANIC MEMBRANE: TM's normal bilaterally MOUTH: Normal oral and palatal mucosa present, lip normal and tongue normal THROAT: posterior oropharynx normal; no uvular edema Eye: COMMON NORMALS: Equal, round and reactive pupils present and EOMs intact bilaterally GENERAL EYE: appearance normal, both eyes and all related stru ctures ALIGNMENT: Yes alignment normal PERIORBITAL: periorbital findings normal EYELID: eyelids normal PUPIL: Yes Equal, round and reactive pupils present DIRECT OPHTHALMOSCOPY: Yes photophobia Neck/C-Spine: COMMON NORMALS: full ROM, no lymphadenopathy and supple GENERAL: Yes normal visual inspection and Yes trachea midline CERVICAL SPINE: Yes cervical ROM normal, No pain with cervical ROM and No Cervical spine tenderness Lymph: LYMPHATIC: no lymphadenopathy noted Chest: COMMONS NORMALS: normal inspection of the chest and normal palpation of entire chest wall Resp: COMMON NORMALS: normal respiratory effort, No retractions, No use of accessory muscles and clear to auscultation bilaterally EFFORT & INSPECTION: Yes able to speak in complete sentences AUSCULTATION: clear to auscultation bilaterally Cardio: COMMON NORMALS: regular rate, regular rhythm, S1 normal heart sound present, S2 normal heart sound present and Peripheral pulses 2+ throughout RATE: regular rate RHYTHM: regular rhythm HEART SOUNDS: S1 normal heart sound present and S2 normal heart sound present PERIPHERAL PULSES: Peripheral pulses 2+ throughout GI: COMMON NORMALS: Normal to inspection, nondistended, normoactive bowel sounds present, Soft to palpation and non-tender INSPECTION: Yes normal to inspection, No abdominal wall ecchymosis, No abdominal distension, Yes incision (Umbilicus, no drainage, scab formation present without erythema) Inspection of incision: healing well, Yes scar (Healing well without infection) and No visible herniation PALPATION: Yes Soft to palpation and No Tenderness to palpation present (GI) : COMMON NORMALS: Yes no CVA tenderness BLADDER/KIDNEY EXAM: Yes no CVA tenderness Back/Pelvis: COMMON NORMALS: no CVA tenderness and thoracic and lumbar spine normal to inspection Extremity: COMMON NORMALS: normal to inspection and capillary refill normal Neuro: EDILIA COMA SCALE: document GCS findings [place] coma scale eye opening: Spontaneous [place] coma scale verbal response: Orientated Ed[place] coma scale motor response: Obey commands Edilia coma scale total score: 15 COMMON NORMALS: patient oriented x3 and no focal motor deficits SENSORIUM/ORIENTATION: Yes alert, Yes oriented to person, Yes oriented to place and Yes oriented to time SPEECH: speech normal GAIT: Yes Normal gait present MOTOR EXAM: 5/5 motor strength present throughout Psych: COMMON NORMALS: mental status grossly normal, Normal thought process present, cooperative, normal affect and speech normal APPEARANCE: Yes well kempt ACTIVITY/MOTOR BEHAVIOR: Yes appropriate eye contact SPEECH: Yes normal speech THOUGHT PROCESS: Normal thought process present Skin: COMMON NORMALS: no rashes or lesions noted and turgor normal GENERAL SKIN EXAM: no rashes or lesions noted and turgor normal Course ED course: 24-year-old female patient presents to the emergency department with several complaints. Presents with migraine headache which is triggered by her menstrual cycle. Tylenol not effective with pain reduction for migraine. She also reports menorrhagia with menstrual cycle, experienced missed AB 01/16/2020, is the first menstrual cycle she has experienced since missed AB. Discussed with patient normal finding the menstrual cycle may be heavier, flow has decreased today. She is not having symptoms of lightheadedness or near syncope. Reports going through 1 pad every 4-5 hours. She is also concerned regarding her umbilical incision due to recent cholecystectomy. Was found without signs and symptoms of infection, retained suture present, discussed normal wound healing with delay of suture absorption as possibility. She was prescribed ibuprofen and Phenergan for her migraine headache. Advised to return the emergency room if she had worsening symptoms. Verbalized understanding. Advised to continue follow-up with Dr. Medina. Vital Signs: Vital signs: Vital Signs Temperature 98.4 F 02/23/20 15:47 Pulse Rate 66 02/23/20 21:06 Respiratory Rate 18 02/23/20 21:06 Blood Pressure 123/85 02/23/20 21:06 Pulse Oximetry 98 02/23/20 21:06 Discharge Plan Discharge Patient Disposition: Home Clinical Impression: Healing wound Migraine Qualifiers: Migraine type: without aura Status migrainosus presence: with status migrainosus Intractability: intractable Qualified Code(s): G43.011 - Migraine without aura, intractable, with status migrainosus Menorrhagia Qualifiers: Menorrhagia type: with regular cycle Qualified Code(s): N92.0 - Excessive and frequent menstruation with regular cycle Condition: Stable Prescriptions: New IBU 800 mg tablet 800 mg PO TID PRN (Reason: migraine headache) Qty: 30 RF: 0 promethazine 25 mg tablet 25 mg PO QID PRN (Reason: nausea) Qty: 10 RF: 0 No Action pantoprazole [Protonix] 40 mg tablet,delayed release (DR/EC) 40 mg PO QAM 30 Days Qty: 30 RF: 2 lactulose 10 gram/15 mL (15 mL) solution 10 g PO BID Qty: 750 RF: 2 Zofran 4 mg tablet 4 mg PO Q6H PRN (Reason: nausea and vomiting) Qty: 20 RF: 0 Colace 100 mg capsule 100 mg PO BID Qty: 30 RF: 0 Discharge Orders: Discharge ED (Routine); Ordered 02/23/20 Ordered By: Vi García Referrals: Shadia Raymundo, SWAGING MACHINE OPERATOR [Primary Care Provider] - Discharge Diet: Usual diet Discharge Activity: Limit activity as instructed Patient Instructions: Migraine Headache (ED), Menorrhagia (ED) Activity Restrictions/Additional Instructions: Avoid touching your surgical wound, this could lead to contamination and cause infection Keep wound clean and complete wound care as per instructions by Dr. Medina Return to the emergency department if you develop bleeding from the wound or other concerning symptoms Go home and rest today and tomorrow, prescription of ibuprofen and Phenergan have been given to you if migraine headache continues Return to the emergency department if you develop the worst headache of your life First menstrual period after miscarriage can be heavier than your normal cycle. Please follow-up with your primary care physician if heavy menstrual cycles continue to occur. Coding Level of Care Code ED Policy Director for [facility] Fwd Exam Comprehensive
[2020-02-23] MEDS: promethazine 25 mg/mL SDV 1 mL IM (21:02)
[2020-02-23] MEDS: ibuprofen 800 mg tablet PO (21:02)
[2020-02-23 21:06] VITALS: BP 123/85; PULSE 66; RESP 18; O2SAT 98
== END 2020-02-23 21:08 | disposition home or self-care (01) ==
PROVIDERS: Emergency Provider Nurse Practitioner Family; PCP Nurse Practitioner Family
DX: G43.011 Migraine without aura, intractable, with status migrainosus (principal); N92.0 Excessive and frequent menstruation with regular cycle; F17.210 Nicotine dependence, cigarettes, uncomplicated
CPT/HCPCS: 12345; 96372; 99281; 99283; J2550

== ENCOUNTER → 2020-04-27 13:13 | Outpatient (BNVA) | payer MEDICAID, SELFPAY | PROVIDERS: PCP Nurse Practitioner Family; Visit Provider Obstetrics & Gynecology | DX: Z32.01 Encounter for pregnancy test, result positive (principal) | CPT/HCPCS: 81025 ==

== ENCOUNTER 2020-05-19 01:28 | Emergency (ER) | payer MEDICAID, SELFPAY ==
[2020-05-19 01:28] VITALS: BP 126/86; PULSE 90; RESP 17; TEMP 37.1; O2SAT 98; BMI 31.6
--- NOTE | 2020-05-19 01:33 | W.ED.ABDPA2 ---
HPI - Abdominal Pain General: Chief Complaint: Abdominal Pain Stated Complaint: FALL Time Seen by Provider: 05/19/20 01:29 Source: patient, family and RN notes reviewed Limitations: no limitations History of Present Illness: HPI narrative: This patient is a 25-year-old female who presents to the emergency department for lower abdominal pain. Patient states she fell 2 days ago tripping over a child's toy. Patient states that she took a bath and try to rest for 2 days but still has a little bit of tenderness. Patient does not appear to be acutely tender or sore. Patient states she is 8 weeks and needs an evaluation. Will do medical evaluation treat as needed MD elicited complaint: abdominal pain and flank pain Pertinent past history: none Onset (ago): day(s) (5) Pain Consistency: intermittent Location: L flank Severity: moderate Associated Symptoms: Denies chills, dysuria, fever(s), nausea and vomiting Related Data: Date of Last Menstrual Period: 01/16/20 Review of Systems General: Reports: 10 or more systems reviewed and unremarkable except in HPI and below Const: Denies: fever(s), chills, body aches or fatigue Eyes: Denies: change in vision or blurry vision ENMT: Denies: throat pain, hoarseness or mouth pain Card: Denies: chest pain, palpitations, irregular heart rhythm, edema, swelling of feet/ankles or lightheadedness Resp: Denies: dyspnea, productive cough, non-productive cough, wheezing or pain on inspiration GI: Reports: abdominal pain; Denies: nausea or vomiting : Reports: flank pain; Denies: difficulty voiding, dysuria, urinary frequency, urinary urgency or urinary hesitancy Musc: Denies: neck pain, back pain, extremity pain, extremity swelling, joint pain, joint swelling, joint redness, joint warmth or limited range of motion Skin/Breast: Denies: rash, pruritus, erythema or skin tenderness Neuro: Denies: headache(s), numbness in extremities or weakness in extremities Psych: Denies: anxiety or depression PFSH ED PFSH: Medical History No pertinent past medical history Surgical History History of section, classical Status post laparoscopic cholecystectomy (01/28/20) Family History Mother Diabetes Hypertension Stroke Family/Other Stroke maternal Heart disease maternal uncle Breast cancer maternal aunt in her 30's Denies family history of Colon cancer Ovarian cancer Clotting disorder Hyperlipidemia Anesthesia complication Bleeding disorder Uterine cancer Thyroid condition Social History Smoking and tobacco status: current every day smoker cigarettes Packs smoked per day: 1 Alcohol intake: never Marital status: Single Female Reproductive History: Date of last menstrual period: 01/16/20 Physical Exam Const: COMMON NORMALS: no acute distress, average body habitus, patient oriented x3, no limitations, healthy appearing, alert and well nourished HENMT: COMMON NORMALS: normocephalic, atraumatic, external ears normal, EAC's normal, TM's normal bilaterally, Normal external nose present and Normal nasal mucous membranes and turbinates present HEAD & SCALP: normocephalic and atraumatic NOSE: Normal external nose present and Normal nasal mucous membranes and turbinates present EXTERNAL EAR: Yes external ears normal EXTERNAL AUDITORY CANAL: EAC's normal TYMPANIC MEMBRANE: TM's normal bilaterally Neck/C-Spine: COMMON NORMALS: full ROM, no lymphadenopathy, supple, no meningeal signs, no JVD, Thyroid normal and No carotid bruits THYROID: Thyroid normal Chest: COMMONS NORMALS: normal inspection of the chest, normal palpation of entire chest wall, normal inspection of the breasts and normal palpation of the breasts Breast/axilla inspection: Yes normal inspection of the breasts BREAST/AXILLA PALPATION: Yes normal palpation of the breasts Resp: COMMON NORMALS: normal respiratory effort, No retractions, No use of accessory muscles, clear to auscultation bilaterally and percussion normal AUSCULTATION: clear to auscultation bilaterally PERCUSSION: percussion normal Cardio: COMMON NORMALS: no JVD, regular rate, regular rhythm, S1 normal heart sound present, S2 normal heart sound present, No gallops present (Cardio), No clicks present (Cardio), No murmurs present (Cardio), No rub (Cardio) and Peripheral pulses 2+ throughout RATE: regular rate RHYTHM: regular rhythm HEART SOUNDS: S1 normal heart sound present and S2 normal heart sound present PERIPHERAL PULSES: Peripheral pulses 2+ throughout GI: COMMON NORMALS: Normal to inspection, nondistended, normoactive bowel sounds present, Soft to palpation, non-tender, No hepatosplenomegaly present, no masses and no bruits PALPATION: Yes Soft to palpation and Yes No hepatosplenomegaly present Back/Pelvis: COMMON NORMALS: thoracic and lumbar spine normal to inspection, no thoracic nor lumbar tenderness, thoraco-lumbar ROM normal and straight leg raise negative bilaterally Extremity: COMMON NORMALS: normal to inspection, full ROM, capillary refill normal, no joint enlargement, no clubbing, cyanosis or edema, no calf tenderness and no pedal edema Neuro: COMMON NORMALS: patient oriented x3 SENSORIUM/ORIENTATION: Yes alert MENINGEAL SIGNS: Yes no meningeal signs Course ED course: Negative evaluation in the emergency department for any acute findings. Negative urine. Bedside ultrasound showed normal heart tones in the 140s. Patient given reassurance will be discharged home follow-up with primary care physician. Vital Signs: Vital signs: Vital Signs Temperature 98.7 F 05/19/20 01:28 Pulse Rate 90 05/19/20 01:28 Respiratory Rate 17 05/19/20 01:28 Blood Pressure 126/86 05/19/20 01:28 Pulse Oximetry 98 05/19/20 01:28 MDM - Abdominal Pain Medical Records: Attestation: I reviewed the patient's medical records. Lab Data: Attestation: I reviewed the patient's lab results. Labs: Lab Results 05/19/20 Range/Units 01:41 Urine Color Yellow (Yellow) Urine Appearance Clear (CLEAR) Urine pH 6 (5-7) Ur Specific Gravit y 1.005 (1.005-1.030) Urine Protein Neg (Negative) Urine Glucose (UA) Norm (Normal) Urine Ketones Negative (Negative) Urine Blood Neg (Negative) Urine Nitrate Negative (Negative) Urine Bilirubin Neg (Negative) Urine Urobilinogen Norm (Negative) mg/dL Ur Leukocyte Naz ase Negative (Negative) Discharge Plan Discharge Patient Disposition: Home Clinical Impression: Fall Condition: Stable Prescriptions: No Action pantoprazole [Protonix] 40 mg tablet,delayed release (DR/EC) 40 mg PO QAM 30 Days Qty: 30 RF: 2 lactulose 10 gram/15 mL (15 mL) solution 10 g PO BID Qty: 750 RF: 2 Zofran 4 mg tablet 4 mg PO Q6H PRN (Reason: nausea and vomiting) Qty: 20 RF: 0 Colace 100 mg capsule 100 mg PO BID Qty: 30 RF: 0 IBU 800 mg tablet 800 mg PO TID PRN (Reason: migraine headache) Qty: 30 RF: 0 promethazine 25 mg tablet 25 mg PO QID PRN (Reason: nausea) Qty: 10 RF: 0 Discharge Orders: Discharge ED (Routine); Ordered 05/19/20 Ordered By: Dhruv Crane Referrals: Shadia Raymundo NP [Primary Care Provider] - Discharge Diet: Advance as tolerated Discharge Activity: Increase activity as tolerated Patient Instructions: Opioid Safety Activity Restrictions/Additional Instructions: Tylenol as needed for pain. Ice and heating pad as needed as needed. Sleep on left side position of comfort. Pelvic rest. Follow-up with your BOILER HOUSE INSPECTOR or PCP in 2 to 3 days. Coding Level of Care Code ED Cellophane Worker for [facility] Fwd Exam Comprehensive
[2020-05-19 01:49] LABS: Add Urine Microscopic? NO
--- NOTE | 2020-05-19 01:51 | PC.NURSE ---
FHR 140's-150's via bedside ultrasound
[2020-05-19 02:02] LABS: Bilirubin Urine Neg (Negative); Blood Urine Neg (Negative); Glucose Urine UA Norm (Normal); Ketones Urine Negative (Negative); Leukocyte Esterase Urine Negative (Negative); Nitrate Urine Negative (Negative); Protein Urine Neg (Negative); Specific Gravity, Urine 1.005 (1.005-1.030); Urine Appearance Clear (CLEAR); Urine Color Yellow (Yellow); Urobilinogen Urine Norm (Negative); pH Urine 6 (5-7)
[2020-05-19 02:28] VITALS: BP 107/68; PULSE 84; RESP 18; O2SAT 97
== END 2020-05-19 02:34 | disposition home or self-care (01) ==
PROVIDERS: Emergency Provider Emergency Medicine; PCP Nurse Practitioner Family
DX: R10.9 Unspecified abdominal pain (principal); F17.210 Nicotine dependence, cigarettes, uncomplicated
CPT/HCPCS: 81003; 99281

== ENCOUNTER 2020-08-05 00:27 | Emergency (ER) | payer MEDICAID, SELFPAY ==
[2020-08-05 00:30] VITALS: BP 110/67; PULSE 99; RESP 18; TEMP 36.4; O2SAT 99; BMI 30.2
--- NOTE | 2020-08-05 00:56 | W.ED.BACK ---
HPI - Back Pain/Injury General: Chief Complaint: Back Pain/Injury Stated Complaint: LOWER BACK PAIN Time Seen by Provider: 08/05/20 00:28 Source: patient and EMS Mode of arrival: EMS Limitations: no limitations History of Present Illness: HPI Narrative: 25-year-old female is currently 19 weeks states that she has been having right-sided flank pain of last 2 days. She states that the pain is sharp in nature. She states it is worse with movement and palpation. She denies any vomiting or diarrhea. Denies any vaginal bleeding or vaginal discharge. She states she has started a new job as well with increased activity. She states the pain is improved with rest. Pain is currently 3 out of 10. Associated symptoms: Deny abdominal pain, chills, fever(s), nausea or vomiting Review of Systems Const: Denies: fever(s), chills, body aches or change in appetite Eyes: Denies: blurry vision or eye discomfort ENMT: Denies: throat pain or dental pain Card: Denies: chest pain Resp: Denies: dyspnea GI: Denies: abdominal pain, nausea, vomiting or diarrhea : Reports: flank pain Musc: Reports: back pain Skin/Breast: Denies: rash Neuro: Denies: headache(s) Psych: Denies: depression [place]/Lymph: Denies: easy bruising All/Imm: Denies: urticaria PFSH ED PFSH: Medical History No pertinent past medical history Surgical History History of section, classical Status post laparoscopic cholecystectomy (01/28/20) Family History Mother Diabetes Hypertension Stroke Family/Other Stroke maternal Heart disease maternal uncle Breast cancer maternal aunt in her 30's Denies family history of Colon cancer Ovarian cancer Clotting disorder Hyperlipidemia Anesthesia complication Bleeding disorder Uterine cancer Thyroid condition Social History Smoking and tobacco status: current every day smoker cigarettes Packs smoked per day: 1 Alcohol intake: never Marital status: Single Female Reproductive History: Date of last menstrual period: 01/16/20 Physical Exam Const: COMMON NORMALS: no acute distress, patient oriented x3 and healthy appearing HENMT: COMMON NORMALS: normocephalic and atraumatic HEAD & SCALP: normocephalic and atraumatic Eye: COMMON NORMALS: Equal, round and reactive pupils present and EOMs intact bilaterally PUPIL: Yes Equal, round and reactive pupils present Neck/C-Spine: COMMON NORMALS: full ROM and supple Chest: COMMONS NORMALS: normal inspection of the chest and normal palpation of entire chest wall Resp: COMMON NORMALS: normal respiratory effort, No retractions, No use of accessory muscles and clear to auscultation bilaterally AUSCULTATION: clear to auscultation bilaterally Cardio: COMMON NORMALS: regular rate, regular rhythm and No murmurs present (Cardio) RATE: regular rate RHYTHM: regular rhythm GI: COMMON NORMALS: Normal to inspection, nondistended, normoactive bowel sounds present, Soft to palpation, non-tender and no masses PALPATION: Yes Soft to palpation OTHER: right flank tenderness Extremity: COMMON NORMALS: normal to inspection and full ROM Neuro: COMMON NORMALS: patient oriented x3, moves all extremities and no focal motor deficits Psych: COMMON NORMALS: mental status grossly normal, Normal thought process present and cooperative THOUGHT PROCESS: Normal thought process present Skin: COMMON NORMALS: no rashes or lesions noted and no wounds GENERAL SKIN EXAM: no rashes or lesions noted Course Vital Signs: Vital signs: Vital Signs Temperature 97.8 F 08/05/20 01:54 Pulse Rate 90 08/05/20 01:54 Respiratory Rate 15 08/05/20 01:54 Blood Pressure 119/73 08/05/20 01:54 Pulse Oximetry 97 08/05/20 01:54 MDM - Back Pain/Injury MDM Narrative: Medical decision making narrative: Patient presents here with some flank pain and dysuria and does have a cystitis. We will place her on 10 days of Keflex and she is given IM Rocephin here. She has no signs of a kidney stone. heart rate is 145. She has no related complaints. She is to follow-up with her [employer] 2 to 4 days and return if worsening. She understands agrees to plan. Lab Data: Labs: Lab Results 08/05/20 Range/Units 01:00 Urine Color Yellow (Yellow) Urine Appearance Cloudy (CLEAR) Urine pH 5 (5-7) Ur Specific Gravit y 1.020 (1.005-1.030) Urine Protein 1+ H (Negative) Urine Glucose (UA) Norm (Normal) Urine Ketones Negative (Negative) Urine Blood 2+ H (Negative) Urine Nitrate Positive H (Negative) Urine Bilirubin Neg (Negative) Urine Urobilinogen Norm (Negative) mg/dL Ur Leukocyte Naz ase 2+ H (Negative) Urine RBC 5-10 H (0-2) /hpf Urine WBC Too numerous to c nt H (0-5) /hpf Ur Squamous Epith Cells 0-4 H (0-5) /hpf Amorphous Sediment Not Reportable Urine Bacteria 2+ H (NONE) /hpf Discharge Plan Discharge Patient Disposition: Home Clinical Impression: Cystitis Condition: Stable Prescriptions: New cephalexin 500 mg capsule 500 mg PO QID 10 Days Qty: 40 RF: 0 No Action pantoprazole [Protonix] 40 mg tablet,delayed release (DR/EC) 40 mg PO QAM 30 Days Qty: 30 RF: 2 lactulose 10 gram/15 mL (15 mL) solution 10 g PO BID Qty: 750 RF: 2 Zofran 4 mg tablet 4 mg PO Q6H PRN (Reason: nausea and vomiting) Qty: 20 RF: 0 Colace 100 mg capsule 100 mg PO BID Qty: 30 RF: 0 IBU 800 mg tablet 800 mg PO TID PRN (Reason: migraine headache) Qty: 30 RF: 0 promethazine 25 mg tablet 25 mg PO QID PRN (Reason: nausea) Qty: 10 RF: 0 Discharge Orders: Discharge ED (Routine); Ordered 08/05/20 Ordered By: Renny Pfeiffer Referrals: Shadia Raymundo NP [Primary Care Provider] - Discharge Diet: Advance as tolerated Discharge Activity: Resume usual activity Patient Instructions: Urinary Tract Infection in Women (ED), Flank Pain (ED), Opioid Safety Coding Level of Care Code ED Courtesy Van Driver for Chg Fwd Exam Comprehensive
[2020-08-05] MEDS: HYDROcodone-acetaminophen 5-325 mg Tablet 1 TAB PO (00:59)
[2020-08-05 01:22] LABS: Add Urine Microscopic? YES; Bilirubin Urine Neg (Negative); Blood Urine 2+ (Negative); Glucose Urine UA Norm (Normal); Ketones Urine Negative (Negative); Leukocyte Esterase Urine 2+ (Negative); Nitrate Urine Positive (Negative); Protein Urine 1+ (Negative); Urine Appearance Cloudy (CLEAR); Urine Color Yellow (Yellow); Urobilinogen Urine Norm (Negative); pH Urine 5 (5-7)
[2020-08-05 01:23] LABS: Add Urine Culture? Yes; Bacteria Urine 2+ /hpf; Squamous Epithelial Cell Urine 0-4 /hpf (0-5); WBC Urine TOO NUMEROUS TO CNT /hpf (0-5)
[2020-08-05] MEDS: cefTRIAXone 1,000 MG in lidocaine 1% 2.1 ML 1 MG IM (01:45)
[2020-08-05 01:54] VITALS: BP 119/73; PULSE 90; RESP 15; TEMP 36.6; O2SAT 97
== END 2020-08-05 01:56 | disposition home or self-care (01) ==
PROVIDERS: Emergency Provider Emergency Medicine; PCP Nurse Practitioner Family
DX: N30.90 Cystitis, unspecified without hematuria (principal); F17.210 Nicotine dependence, cigarettes, uncomplicated
CPT/HCPCS: 81001; 87077; 87086; 87186; 96372; 99283; J0696

== ENCOUNTER 2022-02-27 03:37 | Emergency (ER) | payer MEDICAID, SELFPAY ==
[2022-02-27 03:38] VITALS: BP 145/98; PULSE 83; RESP 17; TEMP 37.1; O2SAT 100; BMI 27.4
--- NOTE | 2022-02-27 04:00 | ED_ITS ---
Documented by User: ANGELO Santos 02/27/22 04:44 HPI - General Adult General: Chief complaint: General Medical Stated complaint: R BREAST PAIN Time Seen by Provider: 02/27/22 03:48 Source: patient Mode of arrival: EMS Limitations: no limitations History of Present Illness: Patient presents emergency department brought by EMS for evaluation. He complains of right nipple pain and vomiting. Patient states that back in December she got both of her nipples pierced at a piercing salon in [place]. This is a well-known shop with a good reputation. Patient states she has not had any issues with her left nipple piercing however, her right nipple over the last 3 to 4 days has become sore with draining from the piercing site and firmness along the right side of her breast. Patient states she started having vomiting today. Patient denies fever. She denies any known trauma to the site including snagging or pulling of the piercing. Patient then mentions that even though she has the Implanon (placed in december) and has had a tubal, patient had a positive test yesterday. She reports having had a tubal due to an ectopic . Review of Systems General: Reports: 10 or more systems reviewed and unremarkable except in HPI and below Skin/Breast: Reports: skin pain, skin tenderness, breast pain and breast mass PFSH ED PFSH: Medical History No pertinent past medical history Surgical History History of section, classical Status post laparoscopic cholecystectomy (01/28/20) Family History Mother Diabetes Hypertension Stroke Family/Other Stroke maternal Heart disease maternal uncle Breast cancer maternal aunt in her 30's Denies family history of Colon cancer Ovarian cancer Clotting disorder Hyperlipidemia Anesthesia complication Bleeding disorder Uterine cancer Thyroid condition Social History Smoking and tobacco status: current every day smoker cigarettes Packs smoked per day: 1 Alcohol intake: never Marital status: Single Female Reproductive History: Date of last menstrual period: 01/16/20 Physical Exam Const: COMMON NORMALS: no acute distress, patient oriented x3 and alert HENMT: COMMON NORMALS: normocephalic, atraumatic, hearing grossly normal bilaterally, Normal external nose present and moist oral mucous membranes HEAD & SCALP: normocephalic and atraumatic NOSE: Normal external nose present Eye: COMMON NORMALS: Equal, round and reactive pupils present, EOMs intact bilaterally and conjunctivae normal CONJUNCTIVA: Yes conjunctivae normal PUPIL: Yes Equal, round and reactive pupils present Neck/C-Spine: COMMON NORMALS: full ROM and no JVD Lymph: LYMPHATIC: lymphadenopathy (right lateral breast) Chest: OTHER: Patient has a nickel barbell in her right nipple. No significant amount of draining or pus visible. No draining from the actual nipple. No discoloration or erythema noted to the areola or red streaking up the breast tissue. Patient does have a few areas of firmness deep to the skin extending up the right side of her breast-suspect lymph nodes. Resp: COMMON NORMALS: normal respiratory effort, No retractions and No use of accessory muscles Cardio: COMMON NORMALS: no JVD, regular rate, regular rhythm and No murmurs present (Cardio) RATE: regular rate RHYTHM: regular rhythm : COMMON NORMALS: Yes no CVA tenderness BLADDER/KIDNEY EXAM: Yes no CVA tenderness Back/Pelvis: COMMON NORMALS: no CVA tenderness and thoraco-lumbar ROM normal Extremity: COMMON NORMALS: normal to inspection and full ROM Neuro: COMMON NORMALS: patient oriented x3 SENSORIUM/ORIENTATION: Yes alert Psych: COMMON NORMALS: mental status grossly normal, Normal thought process present, cooperative, normal affect, speech normal and activity/motor behavior normal SPEECH: Yes normal speech THOUGHT PROCESS: Normal thought process present Course Vital Signs: Vital signs: Vital Signs Temperature 98.8 F 02/27/22 03:38 Pulse Rate 82 02/27/22 05:48 Respiratory Rate 16 02/27/22 05:48 Blood Pressure 146/97 02/27/22 05:48 Pulse Oximetry 96 02/27/22 05:48 Oxygen Delivery Me thod 02/27/22 03:38 [facility] - General Adult Medical Decision Making Patient presented today for concerns of an infected right nipple piercing and also mentions concern for though she has a history of tubal and curren tly has an Implanon. Patient's physical examination shows no signs of an abscess. Patient has not draining from the actual nipple but has complaints of draining from the piercing site. Patient has what I suspect is a slight lymphadenopathy along the lateral side of the breast extending up towards the tail but there is no signs of erythema in this area. Patient is started on oral cephalexin as well as mupirocin cream with the first doses provided in the emergency room tonight.. We obtained a UA to run a test. test is pending. Case discussed with Dr. Whitley and transfer of care made. Differential Diagnosis Breast abscess, breast cellulitis, infected body piercing, allergy to nickel/metal, ectopic , , false positive urine test Lab Data Laboratory Results Urine Color Yellow (Yellow) 02/27/22 04:40 Urine Appearance Clear (CLEAR) 02/27/22 04:40 Urine pH 6 (5-7) 02/27/22 04:40 Ur Specific Chapman 1.005 (1.005-1.030) 02/27/22 04:40 Urine Protein Neg (Negative) 02/27/22 04:40 Urine Glucose (UA) Norm (Normal) 02/27/22 04:40 Urine Ketones Negative (Negative) 02/27/22 04:40 Urine Blood Neg (Negative) 02/27/22 04:40 Urine Nitrate Negative (Negative) 02/27/22 04:40 Urine Bilirubin Neg (Negative) 02/27/22 04:40 Urine Urobilinogen Norm mg/dL (Negative) 02/27/22 04:40 Ur Leukocyte Esterase Negative (Negative) 02/27/22 04:40 Urine HCG, Qual Negative (Negative) 02/27/22 04:40 Discharge Plan Discharge Patient Disposition: Home Clinical Impression: Mastitis Condition: Stable Prescriptions: New cephalexin 500 mg tablet 500 mg PO TID 7 Days Qty: 21 0RF mupirocin calcium 2 % cream 1 applic topical BID Qty: 15 0RF No Action pantoprazole [Protonix] 40 mg tablet,delayed release (DR/EC) 40 mg PO QAM 30 Days Qty: 30 2RF lactulose 10 gram/15 mL (15 mL) solution 10 g PO BID Qty: 750 2RF Zofran 4 mg tablet 4 mg PO Q6H PRN (Reason: nausea and vomiting) Qty: 20 0RF Colace 100 mg capsule 100 mg PO BID Qty: 30 0RF IBU 800 mg tablet 800 mg PO TID PRN (Reason: migraine headache) Qty: 30 0RF Rx Instructions: take 1 PO TID PRN pain - take with food to avoid stomach upset promethazine 25 mg tablet 25 mg PO QID PRN (Reason: nausea) Qty: 10 0RF Rx Instructions: take 1 PO every 6 hours RN [facility]HA with nausea Discharge Orders: Discharge ED (Routine); Ordered 02/27/22 Ordered By: Jay Whitley Referrals: Shadia Raymundo NP [Primary Care Provider] - Patient Instructions: Mastitis (ED), Opioid Safety, Pain Management Activity Restrictions/Additional Instructions: Antibiotics as directed. Use the antibiotic ointment twice daily as directed. Return for fever, continued vomiting despite 3-4 doses of antibiotics, spreading redness, swelling, or pain, other concerning symptoms. Coding Level of Care Code ED Data Consultant for Chg Fwd Exam Comprehensive Documented by User: Jay Whitley, 03/02/22 22:57 HPI - General Adult General: Chief complaint: General Medical Stated complaint: R BREAST PAIN Time Seen by Provider: 02/27/22 03:48 [facility] ED PFSH: Medical History No pertinent past medical history Surgical History History of section, classical Status post laparoscopic cholecystectomy (01/28/20) Family History Mother Diabetes Hypertension Stroke Family/Other Stroke maternal Heart disease maternal uncle Breast cancer maternal aunt in her 30's Denies family history of Colon cancer Ovarian cancer Clotting disorder Hyperlipidemia Anesthesia complication Bleeding disorder Uterine cancer Thyroid condition Social History Smoking and tobacco status: current every day smoker cigarettes Packs smoked per day: 1 Alcohol intake: never Marital status: Single Course Vital Signs: Vital signs: Vital Signs Temperature 98.8 F 02/27/22 03:38 Pulse Rate 82 02/27/22 05:48 Respiratory Rate 16 02/27/22 05:48 Blood Pressure 146/97 02/27/22 05:48 Pulse Oximetry 96 02/27/22 05:48 Oxygen Delivery Me thod 02/27/22 03:38 MDM - General Adult Medical Decision Making Patient presented today for concerns of an infected right nipple piercing and also mentions concern for though she has a history of tubal and currently has an Implanon. Patient's physical examination shows no signs of an abscess. Patient has not draining from the actual nipple but has complaints of draining from the piercing site. Patient has what I suspect is a slight lymphadenopathy along the lateral side of the breast extending up towards the tail but there is no signs of erythema in this area. Patient is started on oral cephalexin as well as mupirocin cream with the first doses provided in the emergency room tonight.. We obtained a UA to run a test. test is pending. Case discussed with Dr. Whitley and transfer of care made. Patient was originally seen by Mrs Abad PA-C. I agree with her history, gregg luation, and treatment. is neg. UA is neg. will treat for a mastitis and allow dc. orders have been written. close outpt fu with pcp. she knows to return for worsening symptoms. Lab Data Laboratory Results Urine Color Yellow (Yellow) 02/27/22 04:40 Urine Appearance Clear (CLEAR) 02/27/22 04:40 Urine pH 6 (5-7) 02/27/22 04:40 Ur Specific Chapman 1.005 (1.005-1.030) 02/27/22 04:40 Urine Protein Neg (Negative) 02/27/22 04:40 Urine Glucose (UA) Norm (Normal) 02/27/22 04:40 Urine Ketones Negative (Negative) 02/27/22 04:40 Urine Blood Neg (Negative) 02/27/22 04:40 Urine Nitrate Negative (Negative) 02/27/22 04:40 Urine Bilirubin Neg (Negative) 02/27/22 04:40 Urine Urobilinogen Norm mg/dL (Negative) 02/27/22 04:40 Ur Leukocyte Esterase Negative (Negative) 02/27/22 04:40 Urine HCG, Qual Negative (Negative) 02/27/22 04:40 Discharge Plan Discharge Patient Disposition: Home Clinical Impression: Mastitis Condition: Stable Prescriptions: New cephalexin 500 mg tablet 500 mg PO TID 7 Days Qty: 21 0RF mupirocin calcium 2 % cream 1 applic topical BID Qty: 15 0RF No Action pantoprazole [Protonix] 40 mg tablet,delayed release (DR/EC) 40 mg PO QAM 30 Days Qty: 30 2RF lactulose 10 gram/15 mL (15 mL) solution 10 g PO BID Qty: 750 2RF Zofran 4 mg tablet 4 mg PO Q6H PRN (Reason: nausea and vomiting) Qty: 20 0RF Colace 100 mg capsule 100 mg PO BID Qty: 30 0RF IBU 800 mg tablet 800 mg PO TID PRN (Reason: migraine headache) Qty: 30 0RF Rx Instructions: take 1 PO TID PRN pain - take with food to avoid stomach upset promethazine 25 mg tablet 25 mg PO QID PRN (Reason: nausea) Qty: 10 0RF Rx Instructions: take 1 PO every 6 hours RN [facility]HA with nausea Discharge Orders: Discharge ED (Routine); Ordered 02/27/22 Ordered By: Jay Whitley Referrals: Shadia Raymundo NP [Primary Care Provider] - Patient Instructions: Mastitis (ED), Opioid Safety, Pain Management Activity Restrictions/Additional Instructions: Antibiotics as directed. Use the antibiotic ointment twice daily as directed. Return for fever, continued vomiting despite 3-4 doses of antibiotics, spreading redness, swelling, or pain, other concerning symptoms. Coding Level of Care Code ED Data Consultant for Chg Fwd Exam Comprehensive
[2022-02-27] MEDS: cephALEXin 500 mg Capsule PO (04:39)
[2022-02-27] MEDS: mupirocin oint 22 gm 1 APPLIC TOPICAL (04:40)
[2022-02-27 05:13] LABS: Add Urine Microscopic? NO; Charge for UA Resulting for Rev
[2022-02-27 05:17] LABS: Bilirubin Urine Neg (Negative); Blood Urine Neg (Negative); Glucose Urine UA Norm (Normal); Ketones Urine Negative (Negative); Leukocyte Esterase Urine Negative (Negative); Nitrate Urine Negative (Negative); Protein Urine Neg (Negative); Specific Gravity, Urine 1.005 (1.005-1.030); Urine Appearance Clear (CLEAR); Urine Color Yellow (Yellow); Urobilinogen Urine Norm (Negative); pH Urine 6 (5-7)
[2022-02-27 05:48] VITALS: BP 146/97; PULSE 82; RESP 16; O2SAT 96
== END 2022-02-27 05:49 | disposition home or self-care (01) ==
PROVIDERS: Physician Assistant; Emergency Provider Emergency Medicine; PCP Nurse Practitioner Family
DX: N61.0 Mastitis without abscess (principal); F17.210 Nicotine dependence, cigarettes, uncomplicated
CPT/HCPCS: 81003; 81025; 99283

== ENCOUNTER 2022-09-07 16:07 | Outpatient (CLI) | payer MEDICAID, SELFPAY | END 2022-09-07 16:08 | disposition home or self-care (01) | LOC: LAB 16:16 | PROVIDERS: PCP Nurse Practitioner Family; Visit Provider Nurse Practitioner Women's Health | DX: N92.6 Irregular menstruation, unspecified (principal) | CPT/HCPCS: 84702 ==